=== PATIENT | female | born 1970 | race African-American/Black ===

== ENCOUNTER 2018-11-21 23:45 | Emergency (ER) | payer OTHER ==
[~2018-11-21] VITALS: Ht 165.1 cm; Wt 104.3 kg
--- OUTSIDE RECORDS SUMMARY | 2018-11-21 23:52 | XMS REPORT ---
Discharge Summary 2.1 Created on: TONY MELARA : 1970 Sex: Female Author Author ANIYAH MERINO Unknown Address [address] [facility] [address] [place], [place] [id number] Care Team Providers Care Family Dentist Name Role Phone HENNA PALMER Watchlist Xwatchlist CARMENCITA MONROEIN JAMMER OPERATOR Anesth ADRIEN GARCIA MD Attending KEIRA ALCANTAR ADRIEN Physasst DOLLY ALCANTAR ADRIEN Physasst ROHAN GARCIA MD [facility] Functional Status No Data Found Immunization Immunization Date Status Additional Notes Code Code System influenza, split (incl. purified surface antigen) 04/11/2011 Completed 15 CVX Mental Status No Data Found Results CBC W/ AUTO DIFF (RFLX MAN DIFF IF IND) - Collect Date/Time: 05/02/2018 06:40 [facility] PLANISHING HAMMER OPERATOR [facility] ID: [id number] [address] [facility] [address], [place], [id number] [employer] ID: [id number] [address] [facility] [address], [place], [place], [id number] LOINC: 44536-5 Test Value Unit Reference Range Code Code System WBC 6.3 TH/CMM L=4.5 H=10.8 74475-1 LOINC RBC 3.46 ML/CMM L=4.20 H=5.40 789-8 LOINC HGB 10.3 G/DL L=12.0 H=16.0 718-7 LOINC HCT 33.4 % L=37.0 H=47.0 4544-3 LOINC MCV 97 FL L=81 H=99 MCH 29.8 PG L=27.0 H=33.0 MCHC 30.8 G/DL L=31.0 H=36.0 RDW SD 49 FL L=36 H=50 RDW CV 13.9 % L=0.0 H=14.8 MPV 9.7 FL L=9.3 H=12.5 PLT 207 TH/CMM L=130 H=440 777-3 LOINC NRBC# 0.00 TH/CMM L=0.00 H=0.00 NRBC% 0.0 /100WBC L=0.0 H=2.0 %NEUT 48.3 % %LYMP 36.8 % %MONO 11.4 % %EOS 2.7 % %BASO 0.6 % #NEUT 3.06 TH/CMM L=2.10 H=8.20 #LYMP 2.33 TH/CMM L=0.90 H=5.20 #MONO 0.72 TH/CMM L=0.16 H=1.00 #EOS 0.17 TH/CMM L=0.00 H=0.80 #BASO 0.04 TH/CMM L=0.00 H=0.20 MANUAL DIFF NOT IND CBC W/ AUTO DIFF (RFLX MAN DIFF IF IND) - Collect Date/Time: 05/01/2018 06:15 [facility] PLANISHING HAMMER OPERATOR [facility] ID: [id number] [address] [facility] [address], [place], [place], [id number] [facility] ID: [id number] [address] [facility] [address], [place], [place], [id number] LOINC: 00486-9 Test Value Unit Reference Range Code Code System WBC 7.2 TH/CMM L=4.5 H=10.8 87889-9 LOINC RBC 3.43 ML/CMM L=4.20 H=5.40 789-8 LOINC HGB 10.2 G/DL L=12.0 H=16.0 718-7 LOINC HCT 32.7 % L=37.0 H=47.0 4544-3 LOINC MCV 95 FL L=81 H=99 MCH 29.7 PG L=27.0 H=33.0 MCHC 31.2 G/DL L=31.0 H=36.0 RDW SD 48 FL L=36 H=50 RDW CV 13.8 % L=0.0 H=14.8 MPV 10.8 FL L=9.3 H=12.5 PLT 224 TH/CMM L=130 H=440 777-3 LOINC NRBC# 0.00 TH/CMM L=0.00 H=0.00 NRBC% 0.0 /100WBC L=0.0 H=2.0 %NEUT 62.4 % %LYMP 27.2 % %MONO 9.5 % %EOS 0.3 % %BASO 0.3 % #NEUT 4.47 TH/CMM L=2.10 H=8.20 #LYMP 1.95 TH/CMM L=0.90 H=5.20 #MONO 0.68 TH/CMM L=0.16 H=1.00 #EOS 0.02 TH/CMM L=0.00 H=0.80 #BASO 0.02 TH/CMM L=0.00 H=0.20 MANUAL DIFF NOT IND KNEE 1V OR 2V - Completed: 04/30/2018 14:59 LOINC: EXAMINATION:KNEE 1V OR 2VREASON FOR EXAM:Post-Op Evaluation Left/Right?: LeftTECHNIQUE:AP and lateral views of the left knee were obtained. FINDINGS:There is a left total knee arthroplasty. No periprosthetic lucency or fracture is seen. Alignment is near anatomic. IMPRESSION: Left total knee arthroplasty.Reviewed and Electronically Signed by: Austin Redman MD DABRSigned Date/Time: 05/01/2018 7:53 AMJob ID#: [id number] Social History Type Status Start Date End Date Code Code System Smoking History Never smoker (Never Smoked) 046687983 SNOMED-CT Vital Signs Vital Sign Value Unit Coleman Value Coleman Unit Date/Time Recent/Initial? Code Code System Body Mass Index 37.77 kg/m2 04/08/2018 10:30 Initial 66724-9 LOINC Systolic Blood Pressure 115 mm[Hg] 05/02/2018 11:45 Most Recent 8480-6 LOINC Diastolic Blood Pressure 66 mm[Hg] 05/02/2018 11:45 Most Recent 8462-4 LOINC Systolic Blood Pressure 127 mm[Hg] 04/08/2018 10:30 Initial 8480-6 LOINC Diastolic Blood Pressure 81 mm[Hg] 04/08/2018 10:30 Initial 8462-4 LOINC Body Surface Area 2.17 m2 04/08/2018 10:30 Initial 3140-1 LOINC Height 165.1000 cm 65.00 in 04/08/2018 10:30 Initial 8302-2 LOINC O2 Saturation 100 % 05/02/2018 11:45 Most Recent 56146-3 LOINC O2 Saturation 100 % 04/08/2018 10:30 Initial 66628-8 LOINC Pulse 88.0 /min 05/02/2018 11:45 Most Recent 8867-4 LOINC Pulse 89.0 /min 04/08/2018 10:30 Initial 8867-4 LOINC Respiration 20 /min 05/02/2018 11:45 Most Recent 9279-1 LOINC Respiration 20 /min 04/08/2018 10:30 Initial 9279-1 LOINC Temperature 37.0 [place] 98.6 F 05/02/2018 11:45 Most Recent 8310-5 LOINC Temperature 36.3 [place] 97.3 F 04/30/2018 15:55 Initial 8310-5 LOINC Weight 102.9655 kg 227.00 lbs 04/08/2018 10:30 Initial 04519-9 LOINC Assessment You had the following problems: STATUS POST KNEE REPLACEMENT POST-OP PAIN COPD Review of Systems General: Recent health has been good. Lymph nodes: No recent history of enlargement, inflammation or pain. Head: No history of vertigo or convulsive disorder. Eyes: No history of cataracts or glaucoma. Ears: No history of tinnitus, pain or discharge. Nose: No history of chronic nasal discharge or drainage. Mouth and teeth: No history of recurrent soreness in mouth or tongue. Throat: No history of recurrent hoarseness. Neck: No history of goiter, swelling or enlarged nodes. Respiration: history of wheezing, dyspnea with her pulmonary HTN, gets SOB going upstairs, recent productive cough Cardiovascular: Significant for a history of hypertension. No recent problems with chest pain or abnormal shortness of breath. Gastrointestinal: No recent change in appetite or weight. No dysphagia or abdominal pain. Genitourinary: No history of dysuria or frequency. Endocrine: No history of goiter. Hemapoietic: No history of bleeding disorders. Musculoskeletal: Has a history of degenerative disease in her left knee. Physical Examination ---VITALS---B/P 127/81, rsp 20, hr 89, O2sat 100% ra, ht 5'5"wt 227, BMI 37.77 ---PHYSICAL EXAM--- GENERAL: This is a well-developed, well-nourished 47-year-old female in no acute distress. Patient has normal mood and affect. HEENT: Head is normocephalic. Eyes, pupils are equal and reactive. Nose, mouth and throat, airways are patent. Mucosa is without erythema or exudates. NECK: Symmetrical and supple. Trachea is midline. Thyroid is smooth, not enlarged, without nodules. LYMPHATIC: No anterior/posterior cervical, occipital or supraclavicular lymphadenopathy. CHEST AND LUNGS: Thorax is symmetrical. Breath sounds are bilaterally clear to auscultation. CARDIOVASCULAR: Regular rate and rhythm without murmur, gallops or rubs appreciated. No clicks appreciated. No S3 or S4 is noted. ABDOMEN: Patient has a slight rounded abdomen. Inspection reveals symmetric abdomen without pulsation. Auscultation reveals normal bowel sounds in all four quadrants. Palpation reveals no guarding or organomegaly. MUSCULOSKELETAL: Patient has crepitus with range of motion in her left knee and has decreased range of motion as well. Distal pulses and sensation were intact. There is no excessive scoliosis, lordosis or kyphosis noted. NEUROLOGIC: Patient's general behavior, level of consciousness, thought content and emotional status normal. Cranial nerves II- XII are grossly intact. Hospital Discharge Instructions Assessment Advanced secondary degernative disease left knee Plan of Treatment [facility] Anesthesia has ordered a echo prior to surgery Anticipate a 2-night hospital stay with dismissal to home. Treatment at the time of hospitalization to include medications for pain control, IV fluids, physical therapy, as well as treatment of her above mentioned currently medical problems. Assessment Day 1 status post left total knee arthroplasty Post-operative anemia secondary to surgical blood loss Obesity with a BMI greater than 30 Plan of Treatment Patient is doing well and progressing well. We will obtain better pain control prior to discharge. Discharge to home likely tomorrow (05/02/2018). Assessment POD #2 KR Plan of Treatment Continue current treatments Plan for dismissal today Should you have any questions prior to discharge, please contact a member of your healthcare team. If you have left the hospital and have any questions, plea se contact your primary care physician. PRIMARY CARE PROVIDER: Dr. Rhodes. [phone] HOME MEDICATION INSTRUCTIONS: Take only the medications listed above.. HOME MEDS RETURNED TO PATIENT: Yes. SCRIPTS WRITTEN BY DOCTOR GIVEN TO PATIENT? Yes, for what?,Celebrex, docusate,xarelto,percocet 5/325mg every 4 hours as needed for pain, aspirin, outpatient therapy. SMOKING CESSATION: Smoking and second hand smoke is harmful, to your health.. Smoking has been linked to cancer, cardiac disease, COPD, and asthma.. For more information you can call:, 7-329-SWF-STOP, or 9-160-[employer].. A pamphlet on smoking was given to you, at admission.. IMMUNIZATIONS GIVEN DURING HOSPITALIZATION: Patient refused flu and pneumonia immunizations. FOLLOW UP APPOINTMENT: Dr. Rhodes 05/15/18 at 10:30 FOLLOW-UP OUTPATIENT SERVICES: [facility] Saturday05/05/18 at 11:00 CONTACT PHYSICIAN IF YOU EXPERIENCE ANY: Fever greater than 101F, soreness or redness of calf, or uncontrolled pain. PERSONAL ITEMS RETURNED: Yes. INSTRUCTIONS GIVEN AND DISCHARGE TO: Patient, Spouse/SO, Discharged to:_home___ With:_SO__. INSTRUCTIONS GIVEN BY (TYPE IN NAME AND DATE) Henna Palmer RN. Reason For Referral No Data Found Hospital Course You were admitted to [facility] on 04/30/2018 10:08 with a principal diagnosis of Unilateral primary osteoarthritis, left knee You were discharged from [facility] on 05/02/2018 15:59 Medications Medication Start Date End Date Route Frequency Dose Code Code System Botox 100U Intramuscular Powder for Solution 05/01/2018 Unknown INTRAMUSCULAR EVERY 90 DAYS 100 UNITS 837425 RxNorm OUTPATIENT THERAPY 05/01/2018 Unknown 1 RxNorm Aspirin 81MG Oral Tablet, Enteric Coated 05/01/2018 Unknown BY MOUTH 1 TABLET 843255 RxNorm Percocet 5MG-325MG Oral Tablet 05/01/2018 Unknown BY MOUTH 1 TABLET 5340368 RxNorm Xarelto 10MG Oral Tablet 05/01/2018 Unknown BY MOUTH DAILY 10 MILLIGRAMS 0589216 RxNorm Docusate Sodium 100MG Oral Capsule, Liquid Filled 05/01/2018 Unknown BY MOUTH TWO TIMES A DAY 100 MILLIGRAMS 2494143 RxNorm lamoTRIgine 100MG Oral Tablet 05/01/2018 Unknown ORAL DAILY 100 MILLIGRAMS 552284 RxNorm Vitamin D 65373MV Oral Capsule 05/01/2018 Unknown ORAL WEEKLY ON SUNDAYS 30199 INTERNATIONAL UNITS 2471013 RxNorm Topamax 200MG Oral Tablet 05/01/2018 Unknown ORAL TWO TIMES A DAY 200 MILLIGRAMS 284358 RxNorm TRAZODONE 05/01/2018 Unknown ORAL AT BEDTIME 200 MILLIGRAMS RxNorm Symbicort 160/4.5 160MCG-4.5MCG/1 Actu Inhalation Aerosol Liquid 05/01/2018 Unknown INHALATION TWO TIMES A DAY 1 unit(s) 2793049 RxNorm Omeprazole 20MG Oral Capsule, Delayed Release 05/01/2018 Unknown ORAL TWO TIMES A DAY 20 MILLIGRAMS 334461 RxNorm Myrbetriq 50MG Oral Tablet, Extended Release 05/01/2018 Unknown ORAL DAILY 50 MILLIGRAMS 5854525 RxNorm Montelukast Sodium 10MG Oral Tablet 05/01/2018 Unknown ORAL NEEDED 10 MILLIGRAMS 912571 RxNorm Levothyroxine Sodium 137MCG Oral Tablet 05/01/2018 Unknown ORAL DAILY 137 MCG 933113 RxNorm Gabapentin 600MG Oral Tablet 05/01/2018 Unknown ORAL THREE TIMES A DAY 600 MILLIGRAMS 348287 RxNorm Fluconazole 200MG Oral Tablet 05/01/2018 Unknown ORAL WEEKLY ON SUNDAYS 200 MILLIGRAMS 094527 RxNorm DULoxetine HCl 20MG Oral Capsule, Delayed Release 05/01/2018 Unknown ORAL DAILY 20 MILLIGRAMS 282197 RxNorm CeleBREX 200MG Oral Capsule 05/02/2018 Unknown BY MOUTH DAILY 574417 RxNorm Procedures Procedure Name Date Status Code Code System Achilles tendon repair completed 649503240 SNOMED CT Arthroscopy of knee completed 512126036 SNOMED CT Tonsillectomy and adenoidectomy completed 053678642 SNOMED CT C section completed 05714065 SNOMED CT Replacement of Left Knee Joint with Synthetic Substitute, Cemented, Open A 04/30/2018 completed [id number] ICD10 PCS Hysterectomy completed 752232784 SNOMED CT Exploratory laparotomy completed 14387407 SNOMED CT Breast reduction completed 79535509 SNOMED CT Implants No Data Found Problems Problem Start Date Resolved Date Status Code Code System STATUS POST KNEE REPLACEMENT active 0698917417893 SNOMED-CT POST-OP PAIN active 946551793 SNOMED-CT COPD active 31975567 SNOMED-CT NEUROPATHY 04/09/2018 resolved 462472081 SNOMED-CT PULMONARY HYPERTENSION 04/09/2018 resolved 78043081 SNOMED-CT ARTHRITIS 04/09/2018 resolved 0894388 SNOMED-CT HYPOTHYROIDISM 04/09/2018 resolved 10022443 SNOMED-CT GERD 04/09/2018 resolved 845645763 SNOMED-CT Allergies Allergy Substance Reaction Severity Start Date Concern Status Code Code System PCN (penicillin) Rash (SNOMED-CT: 608530246) Mild Active RxNorm MORPHINE Itching (SNOMED-CT: 678066455) Mild Active 7052 RxNorm METHOTREXATE Mild to Moderate Active 6851 RxNorm LISINOPRIL Cough (SNOMED-CT: 59736878) Mild Active 69608 RxNorm SUMATRIPTAN Anaphylaxis (SNOMED-CT: 86700526) Severe Active 00162 RxNorm LATEX Swelling (SNOMED-CT: 91898785) Mild to Moderate Active 4421011 RxNorm Plan of Treatment No Data Found Encounters No Data Found Goals No Data Found Discharge Medications No Data Found Discharge Diagnosis Discharge Diagnosis Diagnosis Code Start Date Unilateral primary osteoarthritis, left knee M1712 04/30/2018 Health Concerns Section No Data Found
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
--- OUTSIDE RECORDS SUMMARY | 2018-11-21 23:52 | XMS REPORT ---
Discharge Summary 2.1 Created on: TONY MELARA : 1970 Sex: Female Author Author OMAR EDUARDO Unknown Address [address] [facility] [address] [place], [place] [id number] Care Team Providers Care Neon Light Installer Name Role Phone Xwatchlist JAMES SILVA BIOMEDICAL ENGINEERING PROFESSOR Anesth ADRIEN GARCIA MD Attending KEIRA JURADO Physasst DOLLY JURADO Physasst ROHAN GARCIA MD [facility] Functional Status No Data Found Immunization Immunization Date Status Additional Notes Code Code System influenza, split (incl. purified surface antigen) 04/11/2011 Completed 15 CVX Mental Status No Data Found Results CBC W/ AUTO DIFF (RFLX MAN DIFF IF IND) - Collect Date/Time: 09/12/2018 06:25 [employer] ID: [id number] [address] [facility] [address], [place], [id number] [facility] AERONAUTICAL TEST ENGINEER [employer] [facility] ID: [id number] [address] [facility] [address], [place], [id number] LOINC: 31177-1 Test Value Unit Reference Range Code Code System WBC 7.2 TH/CMM L=4.5 H=10.8 79467-3 LOINC RBC 3.31 ML/CMM L=4.20 H=5.40 789-8 LOINC HGB 9.4 G/DL L=12.0 H=16.0 718-7 LOINC HCT 30.5 % L=37.0 H=47.0 4544-3 LOINC MCV 92 FL L=81 H=99 MCH 28.4 PG L=27.0 H=33.0 MCHC 30.8 G/DL L=31.0 H=36.0 RDW SD 48 FL L=36 H=50 RDW CV 14.2 % L=0.0 H=14.8 MPV 10.2 FL L=9.3 H=12.5 PLT 191 TH/CMM L=130 H=440 777-3 LOINC NRBC# 0.00 TH/CMM L=0.00 H=0.00 NRBC% 0.0 /100WBC L=0.0 H=2.0 %NEUT 60.8 % %LYMP 28.2 % %MONO 8.0 % %EOS 2.1 % %BASO 0.6 % #NEUT 4.40 TH/CMM L=2.10 H=8.20 #LYMP 2.04 TH/CMM L=0.90 H=5.20 #MONO 0.58 TH/CMM L=0.16 H=1.00 #EOS 0.15 TH/CMM L=0.00 H=0.80 #BASO 0.04 TH/CMM L=0.00 H=0.20 MANUAL DIFF NOT IND CBC W/ AUTO DIFF (RFLX MAN DIFF IF IND) - Collect Date/Time: 09/11/2018 06:14 [employer] ID: [id number] [address] [facility] [address], [place], [place], [id number] [facility] AERONAUTICAL TEST ENGINEER [facility] ID: [id number] [address], [place], [place], [id number] LOINC: 08616-1 Test Value Unit Reference Range Code Code System WBC 10.8 TH/CMM L=4.5 H=10.8 12506-3 LOINC RBC 3.82 ML/CMM L=4.20 H=5.40 789-8 LOINC HGB 10.8 G/DL L=12.0 H=16.0 718-7 LOINC HCT 35.1 % L=37.0 H=47.0 4544-3 LOINC MCV 92 FL L=81 H=99 MCH 28.3 PG L=27.0 H=33.0 MCHC 30.8 G/DL L=31.0 H=36.0 RDW SD 47 FL L=36 H=50 RDW CV 14.1 % L=0.0 H=14.8 MPV 10.6 FL L=9.3 H=12.5 PLT 231 TH/CMM L=130 H=440 777-3 LOINC NRBC# 0.00 TH/CMM L=0.00 H=0.00 NRBC% 0.0 /100WBC L=0.0 H=2.0 %NEUT 68.7 % %LYMP 23.3 % %MONO 7.3 % %EOS 0.2 % %BASO 0.3 % #NEUT 7.38 TH/CMM L=2.10 H=8.20 #LYMP 2.51 TH/CMM L=0.90 H=5.20 #MONO 0.79 TH/CMM L=0.16 H=1.00 #EOS 0.02 TH/CMM L=0.00 H=0.80 #BASO 0.03 TH/CMM L=0.00 H=0.20 MANUAL DIFF NOT IND KNEE 1V OR 2V - Completed: 09/10/2018 13:02 LOINC: EXAMINATION:KNEE 1V OR 2VREASON FOR EXAM:Post-Op Evaluation Left/Right?: RIGHT COMPARISON:None.FINDINGS:Total knee arthroplasty changes with soft tissue swelling, subcutaneous emphysema, a joint effusion, and a surgical drain.IMPRESSION:Right total knee arthroplasty changes.Reviewed and Electronically Signed by: Jackson Lubin Date/Time: 09/10/2018 1:06 PMJob ID#: [id number] Social History Type Status Start Date End Date Code Code System Smoking History Never smoker (Never Smoked) 081373779 SNOMED-CT Vital Signs Vital Sign Value Unit [place] Value [place] Unit Date/Time Recent/Initial? Code Code System Body Mass Index 37.77 kg/m2 07/28/2018 11:05 Most Recent 06576-9 LOINC Body Mass Index 37.77 kg/m2 07/28/2018 11:05 Initial 48501-0 LOINC Systolic Blood Pressure 131 mm[Hg] 09/12/2018 11:12 Most Recent 8480-6 LOINC Diastolic Blood Pressure 83 mm[Hg] 09/12/2018 11:12 Most Recent 8462-4 LOINC Systolic Blood Pressure 132 mm[Hg] 07/28/2018 11:05 Initial 8480-6 LOINC Diastolic Blood Pressure 87 mm[Hg] 07/28/2018 11:05 Initial 8462-4 LOINC Body Surface Area 2.17 m2 07/28/2018 11:05 Most Recent 3140-1 LOINC Body Surface Area 2.17 m2 07/28/2018 11:05 Initial 3140-1 LOINC Height 165.1000 cm 65.00 in 07/28/2018 11:05 Most Recent 8302-2 LOINC Height 165.1000 cm 65.00 in 07/28/2018 11:05 Initial 8302-2 LOINC O2 Saturation 98 % 09/12/2018 11:12 Most Recent 52066-0 LOINC O2 Saturation 100 % 07/28/2018 11:05 Initial 22887-3 LOINC Pulse 80.0 /min 09/12/2018 11:12 Most Recent 8867-4 LOINC Pulse 76.0 /min 07/28/2018 11:05 Initial 8867-4 LOINC Respiration 18 /min 09/12/2018 11:12 Most Recent 9279-1 LOINC Respiration 20 /min 07/28/2018 11:05 Initial 9279-1 LOINC Temperature 36.7 [place] 98.1 F 09/12/2018 11:12 Most Recent 8310-5 LOINC Temperature 36.7 [place] 98.1 F 09/10/2018 12:55 Initial 8310-5 LOINC Weight 103.00 kg 227.00 lbs 07/28/2018 11:05 Most Recent 38741-1 LOINC Weight 103.00 kg 227.00 lbs 07/28/2018 11:05 Initial 93319-9 LOINC Assessment You had the following problems: STATUS POST KNEE REPLACEMENT POST-OP PAIN Review of Systems General: Patient denies recent fever, sweats, or weight changes Dermatological: Patient denies new rashes, lesions, or bruising HEENT: Patient denies recent ROMERO, loss of vision, hearing changes, nasal drainage, or sore throat Cardiovascular: Patient denies recent chest pain, palpitations, or lower extremity swelling Respiratory: Patient denies recent SOB, cough, or wheezing Abdominal/GI: Patient denies recent abd pain, nausea, vomiting, diarrhea, or constipation Musculoskeletal: Patient denies any muscles weakness or pain except as noted in HPI Neurological: Patient denies recent strokes, seizures, loss of sensation, or LOC Endocrine: Patient denies recent problems with diabetes Hematologic: Patient denies a history of blood clots Physical Examination ---VITALS--- BP 132/87, HR 76, RR 20, O2 sat 100%, height 5 foot 5 inches, weight 227 pounds, BMI 37.8 ---PHYSICAL EXAM--- General: Alert&oriented x3, NAD, well-developed, well- nourished Dermatological: Skin is warm and dry without rash or lesions noted Head: Normocephalic, atraumatic Eyes: EOM intact, PERRLA, conjunctiva clear without discharge Ears: Auricles intact without lesions, hearing intact Nose: Nares clear and patent, no discharge noted Throat: Oropharyngeal and buccal mucosa pink and moist, no lesions noted Neck: Supple without lymphadenopathy, trachea in the midline Chest: Symmetrical expansion, NTTP Cardiovascular: RRR, S1&S2, without murmurs or gallops noted, Radial and posterior tibialis pulses 2+ bilaterally, No edema noted on exam Respiratory: CTAB without wheezing or rales Abdominal/GI: Soft, nontender, nondistended, with bowel sounds in 4 quadrants, No masses or organomegaly noted Musculoskeletal: right knee range of motion 0-120?, mild antalgic gait in right lower extremity, no effusion, no instability, medial joint line tenderness, crepitance with range of motion Neurological: Good sensation noted in UE and LE. Psychiatric: Mood and affect are congruent Hospital Discharge Instructions Assessment POD #1 RTKR, acute anemia secondary to expected surgical and post surgical blood loss Plan of Treatment Continue current treatments Plan for dismissal tomorrow if medically stable and met PT's goals Assessment Day 2 status post right total knee arthroplasty Postoperative anemia secondary to surgical blood loss Obesity with a BMI greater than 30 Plan of Treatment The patient is doing well and progressing well. The patient will be discharged home today (09/12/2018). Remainder of instructions per discharge orders Assessment Right knee advanced primary osteoarthritis Obesity with a BMI greater than 30 Plan of Treatment The patient is scheduled for a right total knee arthroplasty on 09/10/2018 pending surgical release from hematology. The indications, complications, risks, and benefits of the procedure were discussed with the patient including an anticipated hospital stay of 2-3 days. During that time the patient will receive therapy, pain control, IV antibiotics, and post- op care. The patient will then be discharged, likely to home, and continue therapy on an outpatient basis. Anesthesia will meet with the patient preoperatively to discuss their medications and other preoperative instructions for the day of surgery. Should you have any questions prior to discharge, please contact a member of your healthcare team. If you have left the hospital and have any questions, plea se contact your primary care physician. INSTRUCTIONS GIVEN BY (TYPE IN NAME AND DATE) LONG GARCIA 09/12/18 Reason For Referral No Data Found Hospital Course You were admitted to [facility] on 09/10/2018 06:53 with a principal diagnosis of Unilateral primary osteoarthritis, right knee You were discharged from [facility] on 09/12/2018 17:05 Medications Medication Start Date End Date Route Frequency Dose Code Code System Percocet 5MG-325MG Oral Tablet 09/11/2018 Unknown BY MOUTH NEEDED EVERY 6 HR 1 TABLET 8546226 RxNorm Outpatient therapy 09/11/2018 Unknown TKR prototcol RxNorm Aspirin 81MG Oral Tablet, Enteric Coated 09/11/2018 Unknown BY MOUTH DAILY 1 TABLET 533877 RxNorm Thera-M Enhanced 90MG-0.03MG-0.15MG-4 Oral Tablet 09/11/2018 Unknown BY MOUTH DAILY 1 TABLET 655986 RxNorm Xarelto 10MG Oral Tablet 09/11/2018 Unknown BY MOUTH DAILY 1 TABLET 5897224 RxNorm Docusate Sodium 100MG Oral Capsule, Liquid Filled 09/11/2018 Unknown BY MOUTH TWO TIMES A DAY 1 TABLET 2065372 RxNorm lamoTRIgine 100MG Oral Tablet 09/11/2018 Unknown ORAL DAILY 100 MILLIGRAMS 166100 RxNorm Topamax 200MG Oral Tablet 09/11/2018 Unknown ORAL TWO TIMES A DAY 200 MILLIGRAMS 175950 RxNorm TRAZODONE 09/11/2018 Unknown ORAL AT BEDTIME 200 MILLIGRAMS RxNorm Myrbetriq 50MG Oral Tablet, Extended Release 09/11/2018 Unknown ORAL DAILY 50 MILLIGRAMS 9866173 RxNorm Linzess 72MCG Oral Capsule 09/11/2018 Unknown ORAL DAILY 72 MCG 2935568 RxNorm Levothyroxine Sodium 137MCG Oral Tablet 09/11/2018 Unknown ORAL DAILY 137 MCG 126194 RxNorm Gabapentin 600MG Oral Tablet 09/11/2018 Unknown ORAL THREE TIMES A DAY 600 MILLIGRAMS 685539 RxNorm CYMBALTA 09/11/2018 Unknown ORAL DAILY 40 MILLIGRAMS RxNorm Procedures Procedure Name Date Status Code Code System Replacement of Right Knee Joint with Synthetic Substitute, Cemented, Open 09/10/2018 completed [id number] ICD10 PCS Implants Implanted LIANA Status Assigning Authority Procedure Date Polyethylene patella prosthesis 7775842561632533615402660270118706 Active FDA RT TKR 09/10/2018 Tibial insert 4408009210761731375525283293379561 Active FDA RT TKR 09/10/2018 Uncoated knee tibia prosthesis, metallic 9203692538261643317588812511776185 Active FDA RT TKR 09/10/2018 Uncoated knee femur prosthesis 6488386254141380572979620727136613 Active FDA RT TKR 09/10/2018 Orthopaedic cement, non-medicated 352523023631664358603360501217760318788290 Active FDA RT TKR 09/10/2018 Problems Problem Start Date Resolved Date Status Code Code System STATUS POST KNEE REPLACEMENT active 4547996995857 SNOMED-CT POST-OP PAIN active 352432944 SNOMED-CT GERD 04/09/2018 resolved 357248067 SNOMED-CT NEUROPATHY 04/09/2018 resolved 054575680 SNOMED-CT ARTHRITIS 04/09/2018 resolved 7392243 SNOMED-CT PULMONARY HYPERTENSION 04/09/2018 resolved 49138066 SNOMED-CT POST-OP PAIN 05/13/2018 resolved 488546617 SNOMED-CT COPD 05/19/2018 resolved 16243237 SNOMED-CT STATUS POST KNEE REPLACEMENT 05/19/2018 resolved 5843280026417 SNOMED- CT HYPOTHYROIDISM 04/09/2018 resolved 90445153 SNOMED-CT Allergies Allergy Substance Reaction Severity Start Date Concern Status Code Code System PCN (penicillin) Rash (SNOMED-CT: 169432954) Mild Active X8812735717 NDF-RT MORPHINE Itching (SNOMED-CT: 292764380) Mild Active 7052 RxNorm METHOTREXATE Mild to Moderate Active 6851 RxNorm LISINOPRIL Cough (SNOMED-CT: 10077154) Mild Active 05862 RxNorm SUMATRIPTAN Anaphylaxis (SNOMED-CT: 92713005) Severe Active 25890 RxNorm LATEX Swelling (SNOMED-CT: 13730346) Mild to Moderate Active 2147417 RxNorm IMITREX Active 456218 RxNorm LOSARTAN POTASSIUM AVPAK Active 655927 RxNorm Plan of Treatment No Data Found Encounters No Data Found Goals No Data Found Discharge Medications No Data Found Discharge Diagnosis Discharge Diagnosis Diagnosis Code Start Date Unilateral primary osteoarthritis, right knee M1711 09/10/2018 Health Concerns Section No Data Found
--- OUTSIDE RECORDS SUMMARY | 2018-11-21 23:52 | XMS REPORT ---
Discharge Summary 2.1 Created on: TONY MELARA : 1970 Sex: Female Author Author OMAR EDUARDO Unknown Address [address] [facility] [address] [place], [place] [id number] Care Team Providers Care Cloth Bleaching Range Back Tender Name Role Phone Xwatchlist JAMES SILVA WIRE MILL OPERATOR Anesth ADRIEN GARCIA MD Attending KEIRA JURADO Physasst DOLLY JURADO Physasst ROHAN GARCIA MD [facility] Functional Status No Data Found Immunization Immunization Date Status Additional Notes Code Code System influenza, split (incl. purified surface antigen) 04/11/2011 Completed 15 CVX Mental Status No Data Found Results CBC W/ AUTO DIFF (RFLX MAN DIFF IF IND) - Collect Date/Time: 09/12/2018 06:25 [employer] ID: [id number] [address] [facility] [address], [place], [address] [facility] [employer] [facility] ID: [id number] [address] [facility] [address], [place], [address] LOINC: 06995-5 Test Value Unit Reference Range Code Code System WBC 7.2 TH/CMM L=4.5 H=10.8 72657-9 LOINC RBC 3.31 ML/CMM L=4.20 H=5.40 789-8 [...] IF IND) - Collect Date/Time: 09/11/2018 06:14 [facility] ID: [id number] [address], [place], [place], [address] [facility] [employer] [facility] ID: [id number] [address], [place], [place], [address] LOINC: 84876-1 Test Value Unit Reference Range Code Code System WBC 10.8 TH/CMM L=4.5 H=10.8 40400-8 LOINC RBC 3.82 ML/CMM L=4.20 H=5.40 789-8 [...] Jackson Lubin Date/Time: 09/10/2018 1:06 PMJob ID#: [id number] Social History Type Status Start Date End Date Code Code System Smoking History Never smoker (Never Smoked) 281345367 SNOMED-CT Vital Signs Vital Sign Value Unit [place] Value [place] Unit Date/Time Recent/Initial? Code Code System Body Mass Index 37.77 kg/m2 07/28/2018 11:05 Most Recent 98176-3 LOINC Body Mass Index 37.77 kg/m2 07/28/2018 11:05 Initial 24966-7 LOINC Systolic Blood Pressure 131 mm[Hg] 09/12/2018 [...] Saturation 98 % 09/12/2018 11:12 Most Recent 12010-6 LOINC O2 Saturation 100 % 07/28/2018 11:05 Initial 93158-3 LOINC Pulse 80.0 /min 09/12/2018 11:12 Most [...] kg 227.00 lbs 07/28/2018 11:05 Most Recent 98707-7 LOINC Weight 103.00 kg 227.00 lbs 07/28/2018 11:05 Initial 68343-0 LOINC Assessment You had the following problems: [...] Found Hospital Course You were admitted to [facility] on 09/10/2018 06:53 with a principal diagnosis of Unilateral primary osteoarthritis, right knee You were discharged from [facility] on 09/12/2018 17:05 Medications Medication Start Date End Date Route Frequency Dose Code Code System Percocet 5MG-325MG Oral Tablet 09/11/2018 Unknown BY MOUTH NEEDED EVERY 6 HR 1 TABLET 3941757 RxNorm Outpatient therapy 09/11/2018 Unknown TKR prototcol RxNorm Aspirin 81MG Oral Tablet, Enteric Coated 09/11/2018 Unknown BY MOUTH DAILY 1 TABLET 819067 RxNorm Thera-M Enhanced 90MG-0.03MG-0.15MG-4 Oral Tablet 09/11/2018 Unknown BY MOUTH DAILY 1 TABLET 045013 RxNorm Xarelto 10MG Oral Tablet 09/11/2018 Unknown BY MOUTH DAILY 1 TABLET 2354882 RxNorm Docusate Sodium 100MG Oral Capsule, Liquid Filled 09/11/2018 Unknown BY MOUTH TWO TIMES A DAY 1 TABLET 7802003 RxNorm lamoTRIgine 100MG Oral Tablet 09/11/2018 Unknown ORAL DAILY 100 MILLIGRAMS 499206 RxNorm Topamax 200MG Oral Tablet 09/11/2018 Unknown ORAL TWO TIMES A DAY 200 MILLIGRAMS 000504 RxNorm TRAZODONE 09/11/2018 Unknown ORAL AT BEDTIME 200 MILLIGRAMS RxNorm Myrbetriq 50MG Oral Tablet, Extended Release 09/11/2018 Unknown ORAL DAILY 50 MILLIGRAMS 7216291 RxNorm Linzess 72MCG Oral Capsule 09/11/2018 Unknown ORAL DAILY 72 MCG 0974702 RxNorm Levothyroxine Sodium 137MCG Oral Tablet 09/11/2018 Unknown ORAL DAILY 137 MCG 200700 RxNorm Gabapentin 600MG Oral Tablet 09/11/2018 Unknown ORAL THREE TIMES A DAY 600 MILLIGRAMS 528951 RxNorm CYMBALTA 09/11/2018 Unknown ORAL DAILY 40 MILLIGRAMS RxNorm Procedures Procedure Name Date Status Code Code System Replacement of Right Knee Joint with Synthetic Substitute, Cemented, Open 09/10/2018 completed [id number] ICD10 PCS Implants Implanted LIANA Status Assigning Authority Procedure Date Polyethylene patella prosthesis 7819729916756366905026435136445707 Active FDA RT TKR 09/10/2018 Tibial insert 7682097824250021088417477966874379 Active FDA RT TKR 09/10/2018 Uncoated knee tibia prosthesis, metallic 8073784816280559757574991829058301 Active FDA RT TKR 09/10/2018 Uncoated knee femur prosthesis 3652229828503618524946519190144938 Active FDA RT TKR 09/10/2018 Orthopaedic cement, non-medicated 317406074100641991972253050852060096633637 Active FDA RT TKR 09/10/2018 Problems Problem Start Date Resolved Date Status Code Code System STATUS POST KNEE REPLACEMENT active 2982400390801 SNOMED-CT POST-OP PAIN active 243910175 SNOMED-CT GERD 04/09/2018 resolved 728819347 SNOMED-CT NEUROPATHY 04/09/2018 resolved 401237211 SNOMED-CT ARTHRITIS 04/09/2018 resolved 2723038 SNOMED-CT PULMONARY HYPERTENSION 04/09/2018 resolved 96158895 SNOMED-CT POST-OP PAIN 05/13/2018 resolved 783615398 SNOMED-CT COPD 05/19/2018 resolved 29379628 SNOMED-CT STATUS POST KNEE REPLACEMENT 05/19/2018 resolved 1440148341798 SNOMED- CT HYPOTHYROIDISM 04/09/2018 resolved 08370022 SNOMED-CT Allergies Allergy Substance Reaction Severity Start Date Concern Status Code Code System PCN (penicillin) Rash (SNOMED-CT: 965976766) Mild Active W0627190022 NDF-RT MORPHINE Itching (SNOMED-CT: 369530385) Mild Active 7052 RxNorm METHOTREXATE Mild to Moderate Active 6851 RxNorm LISINOPRIL Cough (SNOMED-CT: 48480183) Mild Active 54449 RxNorm SUMATRIPTAN Anaphylaxis (SNOMED-CT: 10875677) Severe Active 16068 RxNorm LATEX Swelling (SNOMED-CT: 80946958) Mild to Moderate Active 6678890 RxNorm IMITREX Active 393969 RxNorm LOSARTAN POTASSIUM AVPAK Active 367432 RxNorm Plan of Treatment No Data Found Encounters No Data Found Goals No Data Found Discharge Medications No Data Found Discharge Diagnosis Discharge Diagnosis Diagnosis Code Start Date Unilateral primary osteoarthritis, right knee M1711 09/10/2018 Health Concerns Section No Data Found
--- OUTSIDE RECORDS SUMMARY | 2018-11-21 23:53 | XMS REPORT ---
Author Author Austin Huitron Organization [facility] Address [address] [place], [place] [id number] Care Team Providers Care Senior Logistics Manager Name Role Phone Austin Huitron PCP Austin Austin PreferredProvider Allergies and Adverse Reactions Name Reaction Notes PENICILLINS morphine Methotrexate Latex losartan Imitrex Plan of Treatment Planned Activity Comments Planned Date Planned Time Plan/Goal Referral to Dr. Huitron 11/04/2018 8:30 AM EKG. 05/08/2018 12:00 AM Holter monitoring 10/01/2018 12:00 AM EKG. 11/07/2018 12:00 AM PT 11/07/2018 12:00 AM PTT. 11/07/2018 12:00 AM Chest PA and Lateral - Main 11/07/2018 12:00 AM UA ROUTINE ONLY 11/07/2018 12:00 AM BMP 11/07/2018 12:00 AM CBC W/ AUTO DIFF (RFLX MAN DIFF IF IND). 11/07/2018 12:00 AM Medications Active Name Start Date Estimated Completion Date SIG Comments levothyroxine 137 mcg oral tablet take 1 tablet (137 mcg) by oral route once daily phenazopyridine 200 mg oral tablet take 1 tablet (200 mg) by oral route 3 times per day after meals topiramate 100 mg oral tablet take 1 tablet (100 mg) by oral route 2 times per day Myrbetriq 50 mg oral tablet extended release 24 hr 06/25/2018 06/20/2019 take 1 tablet (50 mg) by oral route once daily swallowing whole with water. Do not crush, chew and/or divide. for 30 days duloxetine 60 mg oral capsule,delayed release(DR/EC) take 1 capsule (60 mg) by oral route once daily gabapentin 300 mg oral capsule take 1 capsule (300 mg) by oral route 3 times per day trazodone 300 mg oral tablet take 1 tablet by oral route daily lamotrigine 150 mg oral tablet take 1 tablet (150 mg) by oral route once daily Flonase Allergy Relief 50 mcg/actuation nasal spray,suspension 09/12/2018 12/11/2018 spray 1 - 2 sprays (50 - 100 mcg) in each nostril by intranasal route once daily as needed for 90 days Scrub Chlorhexidine Gluconate 4 % topical liquid 09/12/2018 apply externally as directed Linzess 145 mcg oral capsule take 1 capsule (145 mcg) by oral route once daily on an empty stomach at least 30 minutes before 1st meal of the day Name Start Date Expiration Date SIG Comments ferrous sulfate 325 mg (65 mg iron) oral tablet 05/09/2018 08/07/2018 take 1 tablet (325 mg) by oral route once daily for 30 days Per pt Zofran 4 mg oral tablet 07/15/2018 07/20/2018 take 1 tablet by oral route every 8 hours as needed for 5 days doxycycline hyclate 100 mg oral capsule 08/29/2018 09/05/2018 take 1 capsule (100 mg) by oral route every 12 hours for 7 days Per pt prednisone 20 mg oral tablet 09/02/2018 09/07/2018 take 2 tablets (40 mg) by oral route once daily for 5 days Discontinued Name Start Date Discontinued Date SIG Comments gabapentin 600 mg oral tablet 09/12/2018 take 1 tablet (600 mg) by oral route 3 times per day trazodone 100 mg oral tablet 09/12/2018 take 1 tablet (100 mg) by oral route 2 times per day duloxetine 30 mg oral capsule,delayed release(DR/EC) 08/29/2018 take 1 capsule (30 mg) by oral route once daily lamotrigine 25 mg oral tablet 09/12/2018 take 2 tablets by oral route daily Metamucil 3.4 gram/5.4 gram oral powder 05/26/2018 09/11/2018 use as directed by oral route daily Pt notified. Linzess 72 mcg oral capsule 09/11/2018 take 1 capsule (72 mcg) by oral route once daily on an empty stomach at least 30 minutes before 1st meal of the day hydrochlorothiazide 12.5 mg oral tablet 08/15/2018 09/11/2018 take 1 tablet (12.5 mg) by oral route once daily for 30 days Per pt duloxetine 40 mg oral capsule,delayed release(DR/EC) 09/12/2018 take 1 capsule (40 mg) by oral route once daily Flonase Allergy Relief 50 mcg/actuation nasal spray,suspension 08/29/2018 09/11/2018 spray 1 - 2 sprays (50 - 100 mcg) in each nostril by intranasal route once daily for 90 days Pt notified. Problem List Not available. Vital Signs Date Time BP-Sys(mm[Hg] BP-Fang(mm[Hg]) HR(bpm) RR(rpm) Temp WT HT HC BMI BSA BMI Percentile O2 Sat(%) 11/04/2018 8:31:00 AM 126 mmHg 72 mmHg 75 bpm 98.7 F 243.25 lbs 63 in 43.0894 kg/m 2.2146 m 97 % 10/01/2018 2:09:00 PM 138 mmHg 72 mmHg 102 bpm 17 rpm 98.1 F 241 lbs 63 in 42.69 kg/m2 2.20 m2 99 % 09/08/2018 2:00:00 PM 134 mmHg 78 mmHg 81 bpm 17 rpm 98.2 F 239 lbs 63 in 42.3365 kg/m 2.1952 m 99 % 09/02/2018 11:00:00 AM 132 mmHg 78 mmHg 78 bpm 18 rpm 98.4 F 240.125 lbs 63 in 42.54 kg/m2 2.20 m2 98 % 08/29/2018 9:17:00 AM 122 mmHg 68 mmHg 67 bpm 18 rpm 98.8 F 244.5 lbs 63 in 43.3108 kg/m 2.2203 m 99 % 08/19/2018 10:27:00 AM 108 mmHg 72 mmHg 08/14/2018 9:23:00 AM 134 mmHg 78 mmHg 90 bpm 18 rpm 98.6 F 242.125 lbs 63 in 42.8901 kg/m 2.2095 m 98 % 08/08/2018 11:03:00 AM 124 mmHg 78 mmHg 82 bpm 18 rpm 98.2 F 235.125 lbs 65 in 39.13 kg/m2 2.21 m2 98 % 07/23/2018 9:58:00 AM 132 mmHg 76 mmHg 82 bpm 18 rpm 99.1 F 232.5 lbs 65 in 38.6896 kg/m 2.1992 m 97 % 07/15/2018 9:31:00 AM 90 mmHg 72 mmHg 89 bpm 07/15/2018 9:30:00 AM 92 mmHg 68 mmHg 82 bpm 07/15/2018 9:28:00 AM 108 mmHg 80 mmHg 74 bpm 07/15/2018 8:29:00 AM 118 mmHg 72 mmHg 84 bpm 18 rpm 98.6 F 236.375 lbs 65 in 39.3345 kg/m 2.2175 m 98 % 05/19/2018 2:43:00 PM 116 mmHg 69 mmHg 76 bpm 98.1 F 233 lbs 65 in 38.77 kg/m2 2.20 m2 05/09/2018 1:55:00 PM 128 mmHg 78 mmHg 99 bpm 18 rpm 98.8 F 236.5 lbs 65 in 39.3553 kg/m 2.2181 m 97 % 04/29/2018 1:27:00 PM 132 mmHg 76 mmHg 85 bpm 18 rpm 98.8 F 236.375 lbs 65 in 39.33 kg/m2 2.22 m2 99 % 04/25/2018 11:31:00 AM 130 mmHg 100 mmHg 82 bpm 14 rpm 98.8 F 236.5 lbs 65 in 39.3553 kg/m 2.2181 m 96 % 03/18/2018 1:19:00 PM 104 mmHg 6 mmHg 89 bpm 18 rpm 98.2 F 231.125 lbs 65 in 38.46 kg/m2 2.19 m2 98 % 03/06/2018 3:27:00 PM 124 mmHg 74 mmHg 80 bpm 14 rpm 98.6 F 234.25 lbs 65 in 38.9808 kg/m 2.2075 m 99 % Social History Name Description Comments Alcohol Light Caffeine Current every day Tobacco Never smoker History of Procedures Date Ordered Description Order Status 03/06/2018 12:00 AM URINALYSIS AUTO W/SCOPE Reviewed 03/06/2018 12:00 AM US EXAM PELVIC LIMITED Reviewed 03/17/2018 12:00 AM COMPLETE CBC W/AUTO DIFF WBC Reviewed 03/17/2018 12:00 AM METABOLIC PANEL TOTAL CA Reviewed 03/17/2018 12:[address] ABD & PELV 1/> REGNS Reviewed 03/17/2018 12:00 AM URINALYSIS AUTO W/SCOPE Reviewed 03/18/2018 12:00 AM ASSAY THYROID STIM HORMONE Returned 03/18/2018 12:00 AM RHEUMATOID FACTOR QUANT Returned 03/18/2018 12:00 AM ANTINUCLEAR ANTIBODIES JOSELO Returned 03/18/2018 12:00 AM TOTAL CORTISOL Returned 03/18/2018 12:00 AM RBC SED RATE AUTOMATED Returned 03/18/2018 12:00 AM ASSAY OF PROLACTIN Returned 03/18/2018 12:00 AM ELECTROCARDIOGRAM TRACING Returned 03/25/2018 12:00 AM CYSTOSCOPY Reviewed 03/31/2018 12:00 AM FREE ASSAY (FT-3) Returned 03/31/2018 12:00 AM ASSAY OF TOTAL THYROXINE Returned 03/31/2018 12:00 AM MYOCARDIAL SPECT MULTIPLE STUDIES Returned 04/29/2018 12:00 AM SMEAR WET MOUNT SALINE/INK Returned 05/08/2018 12:00 AM COMPLETE CBC W/AUTO DIFF WBC Returned 05/08/2018 12:00 AM COMPREHEN METABOLIC PANEL Returned 05/08/2018 12:00 AM CHEST X-RAY 2VW FRONTAL&LATL Returned 04/25/2018 12:00 AM URINALYSIS AUTO W/SCOPE Reviewed 05/19/2018 12:00 AM CULTURE SCREEN ONLY Reviewed 05/19/2018 12:00 AM CHYLMD TRACH DNA AMP PROBE Reviewed 05/19/2018 12:00 AM DETECT AGENT NOS DNA AMP Reviewed 05/19/2018 12:00 AM TRICHOMONAS VAGINALIS AMPLIF Reviewed 05/19/2018 12:00 AM DETECT AGENT NOS DNA QUANT Reviewed 05/26/2018 12:00 AM MRI LUMBAR SPINE W/O DYE Returned 07/03/2018 12:00 AM URNLS DIP STICK/TABLET RGNT AUTO W/O MICROSCOPY Returned 07/15/2018 12:00 AM TOTAL CORTISOL Returned 07/15/2018 12:00 AM ASSAY OF ACTH Returned 07/15/2018 12:00 AM ASSAY OF LIPASE Returned 07/15/2018 12:00 AM CREATINE MB FRACTION Returned 07/15/2018 12:00 AM ASSAY OF TROPONIN QUANT Returned 07/15/2018 12:00 AM TTE W/DOPPLER COMPLETE Returned 07/23/2018 12:00 AM COMPREHEN METABOLIC PANEL Returned 07/23/2018 12:00 AM COMPLETE CBC W/AUTO DIFF WBC Returned 07/23/2018 12:00 AM FIBRIN DEGRADATION QUANT Returned 07/23/2018 12:00 AM GLYCOSYLATED HEMOGLOBIN TEST Returned 07/23/2018 12:00 AM VITAMIN B-12 Returned 07/23/2018 12:[address] THORAX W/O DYE Returned 08/11/2018 12:00 AM MRI NECK SPINE W/O DYE Returned 08/14/2018 12:00 AM COMPREHEN METABOLIC PANEL Returned 08/14/2018 12:00 AM URINALYSIS AUTO W/SCOPE Returned 08/29/2018 12:00 AM Solu-Medrol, Up to 125 Mg [facility]# [address]-01 Reviewed Results Summary Date and Description Results 03/06/2018 4:27 PM COLOR YELLOW APPEARANCE CLEAR SPEC GRAV >=1.030 pH 5.5 PROTEIN TRACE GLUCOSE NEGATIVE KETONE TRACE BILIRUBIN NEGATIVE BLOOD NEGATIVE NITRITE NEGATIVE LEUK SCREEN NEGATIVE WBC/HPF 0-5 RBC/HPF NEGATIVE CASTS/LPF FEW WBC CASTS CRYSTALS NEGATIVE MUCOUS THRDS 2++ BACTERIA FEW EPITH CELLS FEW SQUAMOUS TRICHOMONAS NEGATIVE YEAST NEGATIVE CULT SET UP? NO 03/17/2018 12:45 PM GLUCOSE 103 SODIUM 140 POTASSIUM 3.5 CHLORIDE 108 CO2 24 BUN 14 CREATININE 0.8 CALCIUM 9.8 AGE 47 GFR NonAA 77 GFR AA 93 eGFR 77 eGFR AA* >60 WBC 4.6 RBC 4.41 HGB 12.9 HCT 40.2 MCV 91 MCH 29.3 MCHC 32.1 RDW SD 45 RDW CV 13.2 MPV 10.0 PLT 241 NRBC# 0.00 NRBC% 0.0 %NEUT 47.4 %LYMP 43.6 %MONO 6.6 %EOS 1.3 %BASO 0.7 #NEUT 2.16 #LYMP 1.99 #MONO 0.30 #EOS 0.06 #BASO 0.03 MANUAL DIFF NOT IND 03/17/2018 1:10 PM COLOR YELLOW APPEARANCE CLEAR SPEC GRAV >=1.030 pH 6.0 PROTEIN NEGATIVE GLUCOSE NEGATIVE KETONE NEGATIVE BILIRUBIN NEGATIVE BLOOD NEGATIVE NITRITE NEGATIVE LEUK SCREEN NEGATIVE WBC/HPF RARE RBC/HPF NEGATIVE CASTS/LPF NEGATIVE CRYSTALS NEGATIVE MUCOUS THRDS NEGATIVE BACTERIA NEGATIVE EPITH CELLS FEW SQUAMOUS TRICHOMONAS NEGATIVE YEAST NEGATIVE CULT SET UP? NO 04/25/2018 12:37 PM COLOR YELLOW APPEARANCE CLEAR SPEC GRAV 1.015 pH 6.5 PROTEIN NEGATIVE GLUCOSE NEGATIVE KETONE NEGATIVE BILIRUBIN NEGATIVE BLOOD NEGATIVE NITRITE NEGATIVE LEUK SCREEN NEGATIVE WBC/HPF RARE RBC/HPF NEGATIVE CASTS/LPF NEGATIVE CRYSTALS NEGATIVE MUCOUS THRDS NEGATIVE BACTERIA NEGATIVE EPITH CELLS FEW SQUAMOUS TRICHOMONAS NEGATIVE YEAST NEGATIVE CULT SET UP? NO History Of Immunizations Not available. History of Past Illness Name Date of Onset Comments Thyroid disorder IBS (irritable bowel syndrome) PTSD (post-traumatic stress disorder) Sinusitis pulmonary hypertension Radicular pain of left lower extremity Rheumatiod Arthritis sleep apnea Urge Incontinence Mar 06 2018 3:31PM Interstitial cystitis Mar 06 2018 3:31PM S/P bladder repair Mar 06 2018 3:31PM S/P hysterectomy Mar 06 2018 3:31PM Endometriosis Mar 06 2018 3:31PM Pyelonephritis Mar 17 2018 9:43AM Hypothyroidism, Acquired Mar 18 2018 1:24PM Chronic fatigue Mar 18 2018 1:24PM Rheumatoid arthritis involving multiple sites, unspecified rheumatoid factor presence Mar 18 2018 1:24PM Galactorrhea Mar 18 2018 1:24PM Precordial pain Mar 18 2018 1:24PM Establishing care with new doctor, encounter for Mar 18 2018 1:24PM Urge incontinence Mar 25 2018 8:49AM Low TSH level Mar 31 2018 2:56PM Precordial pain Mar 31 2018 2:56PM Urge Incontinence Apr 25 2018 11:33AM Vaginal discharge Apr 29 2018 1:32PM Syncopal episodes May 08 2018 11:21AM Lumbar radiculopathy May 09 2018 2:00PM Chronic constipation Apr 25 2018 11:33AM Vaginal discharge May 19 2018 2:52PM Rectovaginal fistula May 19 2018 2:52PM Vaginal bleeding May 19 2018 2:52PM Lumbar radiculopathy May 26 2018 5:41PM Weakness of both lower extremities May 26 2018 5:41PM Vasovagal syncope May 09 2018 2:00PM Dysuria Jul 03 2018 12:44PM Foul smelling urine Jul 03 2018 12:44PM Cloudy urine Jul 03 2018 12:44PM Epigastric pain Jul 15 2018 8:40AM Pre-syncope Jul 15 2018 8:40AM Chest pressure Jul 15 2018 8:40AM Adrenal insufficiency Jul 15 2018 8:40AM Chest tightness Jul 15 2018 11:20AM Pre-syncope Jul 15 2018 11:20AM Chest pressure Jul 23 2018 10:17AM SOB (shortness of breath) on exertion Jul 23 2018 10:17AM Fatigue Jul 23 2018 10:17AM Neuropathy Jul 23 2018 10:17AM Neck pain Aug 08 2018 11:08AM Cervical radiculopathy Aug 08 2018 11:08AM Lumbar back pain with radiculopathy affecting lower extremity Aug 08 2018 11:08AM Lower extremity edema Aug 14 2018 9:26AM Abdominal bloating Aug 14 2018 9:26AM Cervical stenosis of spine Sep 02 2018 11:04AM Bronchitis Sep 02 2018 11:04AM Cervical radiculopathy Sep 02 2018 11:04AM Acute frontal sinusitis, recurrence not specified Aug 29 2018 9:25AM Stress incontinence in female Aug 29 2018 9:25AM Cervical stenosis of spine Sep 08 2018 2:05PM Lumbar pain with radiation down both legs Sep 08 2018 2:05PM Hypotension, unspecified hypotension type Sep 08 2018 2:05PM Neurogenic orthostatic hypotension Oct 01 2018 2:15PM Pre-syncope Oct 01 2018 2:15PM Neurogenic orthostatic hypotension Oct 01 2018 3:38PM Pre-syncope Oct 01 2018 3:38PM Cervical radiculopathy Nov 04 2018 8:39AM Spinal stenosis in cervical region Nov 04 2018 8:39AM Herniated nucleus pulposus, C5-6 Nov 04 2018 8:39AM Cervical spondylosis with myelopathy Nov 04 2018 8:39AM Obesity (BMI 30-39.9) Nov 04 2018 8:39AM Lumbar spondylolysis Nov 04 2018 8:39AM Cervical radiculopathy Nov 07 2018 10:28AM Spinal stenosis in cervical region Nov 07 2018 10:28AM Herniated nucleus pulposus, C5-6 Nov 07 2018 10:28AM Cervical spondylosis with myelopathy Nov 07 2018 10:28AM Lumbar spondylolysis Nov 07 2018 10:28AM Obesity (BMI 30-39.9) Nov 07 2018 10:28AM Preop examination Nov 07 2018 10:28AM Payers Insurance Name Company Name Plan Name Plan Number Policy Number Policy Group Number Start Date WPS - VAPCCC - 's Choice WPS VACAA [id number] N/A [facility] For Life [id number] N/A [facility] [id number] N/A History of Encounters Visit Date Visit Type Provider 11/04/2018 Office visit Austin Huitron MD 10/01/[address] Austin Austin MD 09/08/2018 Office visit Magdalena Chino PERMANENT WAVER 09/02/2018 Office visit Magdalena Chino PERMANENT WAVER 08/29/2018 Office visit Magdalena Chino PERMANENT WAVER 08/19/[address] Austin Austin MD 08/14/2018 Office visit Magdalena Chino PERMANENT WAVER 08/08/2018 Office visit Magdalena Chino PERMANENT WAVER 07/28/2018 [facility] Abigail Nava MD 07/23/2018 Office visit Magdalena Chino PERMANENT WAVER 07/15/[address] Austin Austin MD 05/19/2018 Office visit Claude Rodriguez MD 05/09/[address] Austin Austin MD 05/08/2018 [facility] Abigail Nava MD 04/29/[address] Austin Austin MD 04/25/2018 Office visit Nicholas Duarte MD 03/24/2018 Procedures Nicholas Duarte MD 03/18/[address] Austin Austin MD 03/06/2018 Office visit Nicholas Duarte MD
--- OUTSIDE RECORDS SUMMARY | 2018-11-21 23:53 | XMS REPORT ---
Author Author Austin Huitron Organization [facility] Address [address] [place], [place] [id number] Care Team Providers Care Radio Presenter Name Role Phone Austin Huitron PCP Austin Austin PreferredProvider Allergies and Adverse Reactions Name Reaction Notes PENICILLINS morphine Methotrexate Latex losartan Imitrex Plan of Treatment Planned Activity Comments Planned Date Planned Time Plan/Goal Referral to Dr. Huitron 11/04/2018 8:30 AM EKG. 05/08/2018 12:00 AM Holter monitoring 10/01/2018 12:00 AM Medications Active Name Start Date [...] 12:00 AM Solu-Medrol, Up to 125 Mg [facility]# [id number] Reviewed Results Summary Date and Description Results [...] 8:39AM Lumbar spondylolysis Nov 04 2018 8:39AM Payers Insurance Name Company Name Plan Name Plan Number Policy Number Policy Group Number Start Date WPS - VAPCCC - 's Choice WPS VACAA [id number] N/A [place] [facility] For Life [id number] N/A Veterans Administration [facility] [id number] N/A History of Encounters Visit Date Visit Type Provider 11/04/2018 Office visit Austin Huitron MD 10/01/[address] Austin Austin MD 09/08/2018 Office visit Magdalena Chino MOTORIZED SQUAD SERGEANT 09/02/2018 Office visit Magdalena Chino MOTORIZED SQUAD SERGEANT 08/29/2018 Office visit Magdalena Chino MOTORIZED SQUAD SERGEANT 08/19/[address] Austin Austin MD 08/14/2018 Office visit Magdalena Chino MOTORIZED SQUAD SERGEANT 08/08/2018 Office visit Magdalena Chino MOTORIZED SQUAD SERGEANT 07/28/2018 [facility] Wang Nava MD 07/23/2018 Office visit Magdalena Chino MOTORIZED SQUAD SERGEANT 07/15/[address] Austin Austin MD 05/19/2018 Office visit Claude Rodriguez MD 05/09/[address] Austin Austin MD 05/08/2018 [facility] Wang Nava MD 04/29/[address] Austin Austin MD 04/25/2018 Office visit Nicholas Duarte MD 03/24/2018 Procedures Nicholas Duarte MD 03/18/[address] Austin Austin MD 03/06/2018 Office visit Nicholas Duarte MD
--- OUTSIDE RECORDS SUMMARY | 2018-11-21 23:54 | XMS REPORT ---
Author Austin Bagley [facility] Address [address] [place], [place] [id number] Care Team Providers Care Silver Spray Worker Name Role Phone Austin Austin PCP Austin Austin PreferredProvider Allergies and Adverse [...] topical liquid 09/12/2018 apply externally as directed Name Start Date Expiration Date SIG Comments [...] HC BMI BSA BMI Percentile O2 Sat(%) 10/01/2018 2:09:00 PM 138 mmHg 72 mmHg 102 bpm 17 rpm 98.1 F 241 lbs 63 in 42.6908 kg/m 2.2043 m 99 % 09/08/2018 2:00:00 PM 134 mmHg 78 mmHg 81 bpm 17 rpm 98.2 F 239 lbs 63 in 42.34 kg/m2 2.20 m2 99 % 09/02/2018 11:00:00 AM 132 mmHg 78 mmHg 78 bpm 18 rpm 98.4 F 240.125 lbs 63 in 42.5358 kg/m 2.2003 m 98 % 08/29/2018 9:17:00 AM 122 mmHg 68 mmHg 67 bpm 18 rpm 98.8 F 244.5 lbs 63 in 43.31 kg/m2 2.22 m2 99 % 08/19/2018 10:27:00 AM 108 mmHg 72 mmHg 08/14/2018 9:23:00 AM 134 mmHg 78 mmHg 90 bpm 18 rpm 98.6 F 242.125 lbs 63 in 42.8901 kg/m 2.2095 m 98 % 08/08/2018 11:03:00 AM 124 mmHg 78 mmHg 82 bpm 18 rpm 98.2 F 235.125 lbs 65 in 39.1264 kg/m 2.21 m2 98 % 07/23/2018 9:58:00 AM 132 mmHg 76 mmHg 82 bpm 18 rpm 99.1 F 232.5 lbs 65 in 38.69 kg/m2 2.1992 m 97 % 07/15/2018 9:31:00 AM 90 mmHg 72 mmHg 89 bpm 07/15/2018 9:30:00 AM 92 mmHg 68 mmHg 82 bpm 07/15/2018 9:28:00 AM 108 mmHg 80 mmHg 74 bpm 07/15/2018 8:29:00 AM 118 mmHg 72 mmHg 84 bpm 18 rpm 98.6 F 236.375 lbs 65 in 39.33 kg/m2 2.2175 m 98 % 05/19/2018 2:43:00 PM 116 mmHg 69 mmHg 76 bpm 98.1 F 233 lbs 65 in 38.7728 kg/m 2.20 m2 05/09/2018 1:55:00 PM 128 mmHg 78 mmHg 99 bpm 18 rpm 98.8 F 236.5 lbs 65 in 39.36 kg/m2 2.2181 m 97 % 04/29/2018 1:27:00 PM 132 mmHg 76 mmHg 85 bpm 18 rpm 98.8 F 236.375 lbs 65 in 39.3345 kg/m 2.22 m2 99 % 04/25/2018 11:31:00 AM 130 mmHg 100 mmHg 82 bpm 14 rpm 98.8 F 236.5 lbs 65 in 39.36 kg/m2 2.2181 m 96 % 03/18/2018 1:19:00 PM 104 mmHg 6 mmHg 89 bpm 18 rpm 98.2 F 231.125 lbs 65 in 38.4608 kg/m 2.19 m2 98 % 03/06/2018 3:27:00 PM 124 mmHg 74 mmHg 80 bpm 14 rpm 98.6 F 234.25 lbs 65 in 38.98 kg/m2 2.2075 m 99 % Social History Name [...] 12:00 AM Solu-Medrol, Up to 125 Mg [facility]# [id number] Reviewed Results Summary Date and Description Results [...] 2018 3:38PM Pre-syncope Oct 01 2018 3:38PM Payers Insurance Name Company Name Plan Name Plan Number Policy Number Policy Group Number Start Date WPS - VAPCCC - 's Choice WPS VACAA [id number] N/A [facility] For Life [id number] N/A [facility] Administration [id number] N/A History of Encounters Visit Date Visit Type Provider 10/01/[address] Austin Austin MD 09/08/2018 Office visit Magdalena Chino FIREFIGHTER TYPE ONE 09/02/2018 Office visit Magdalena Murilloimmett FIREFIGHTER TYPE ONE 08/29/2018 Office visit Magdalena Lambertmett FIREFIGHTER TYPE ONE 08/19/[address] Austin Austin MD 08/14/2018 Office visit Magdalena Chino FIREFIGHTER TYPE ONE 08/08/2018 Office visit Magdalena Lambertmett FIREFIGHTER TYPE ONE 07/28/2018 [facility] Wang Nava MD 07/23/2018 Office visit Magdalena Chino FIREFIGHTER TYPE ONE 07/15/[address] Austin Austin MD 05/19/2018 Office visit Claude Rodriguez MD 05/09/[address] Austin Austin MD 05/08/2018 [facility] Wang Nava MD 04/29/[address] Austin Austin MD 04/25/2018 Office visit Nicholas Duarte MD 03/24/2018 Procedures Nicholas Duarte MD 03/18/[address] Austin Austin MD 03/06/2018 Office visit Nicholas Duarte MD
--- OUTSIDE RECORDS SUMMARY | 2018-11-21 23:54 | XMS REPORT ---
Author Author Austin Huitron Organization [facility] Address [address] [place], [place] [id number] Care Team Providers Care Hall Supervisor Name Role Phone Austin Huitron PCP Austin [...] 12:00 AM Solu-Medrol, Up to 125 Mg [facility]# [id number] Reviewed Results Summary Date and Description Results [...] Obesity (BMI 30-39.9) Nov 04 2018 8:39AM Payers Insurance Name Company Name Plan Name Plan Number Policy Number Policy Group Number Start Date WPS - VAPCCC - 's Choice WPS VACAA [id number] N/A [place] [facility] Life [id number] N/A [facility] [id number] N/A History of Encounters Visit Date Visit Type Provider 11/04/2018 Office visit Austin Huitron MD 10/01/[address] Austin Austin MD 09/08/2018 Office visit Magdalena Chino TRAIL CONSTRUCTION WORKER 09/02/2018 Office visit Magdalena Chino TRAIL CONSTRUCTION WORKER 08/29/2018 Office visit Magdalena Chino TRAIL CONSTRUCTION WORKER 08/19/[address] Austin Austin MD 08/14/2018 Office visit Magdalena Chino TRAIL CONSTRUCTION WORKER 08/08/2018 Office visit Magdalena Chino TRAIL CONSTRUCTION WORKER 07/28/2018 [facility] Wang Nava MD 07/23/2018 Office visit Magdalena Chino TRAIL CONSTRUCTION WORKER 07/15/[address] Austin Austin MD 05/19/2018 Office visit Claude Rodriguez MD 05/09/[address] Austin Austin MD 05/08/2018 [facility] Wang Nava MD 04/29/[address] Austin Austin MD 04/25/2018 Office visit Nicholas Duarte MD 03/24/2018 Procedures Nicholas Duarte MD 03/18/[address] Austin Austin MD 03/06/2018 Office visit Nicholas Duarte MD
--- OUTSIDE RECORDS SUMMARY | 2018-11-21 23:55 | XMS REPORT ---
Author Austin Bagley [facility] Address [address] [place], [place] [phone] Care Team Providers Care Oven Operator Name Role Phone Austin Austin PCP Austin [...] 12:00 AM Solu-Medrol, Up to 125 Mg [facility]# [id number] Reviewed Results Summary Date and Description Results [...] - VAPCCC - 's Choice WPS VACAA [id number] N/A [facility] For Life [id number] N/A [facility] Administration [id number] N/A History of Encounters Visit Date Visit Type Provider 10/01/[address] Austin Austin MD 09/08/2018 Office visit Magdalena Chino GRIT BLASTER 09/02/2018 Office visit Magdalena Lambertmett GRIT BLASTER 08/29/2018 Office visit Magdalena Lambertmett GRIT BLASTER 08/19/[address] Austin Austin MD 08/14/2018 Office visit Magdalena Lambertmett GRIT BLASTER 08/08/2018 Office visit Magdalena Lambertmett GRIT BLASTER 07/23/2018 Office visit Magdalena Chino GRIT BLASTER 07/15/[address] Austin Austin MD 05/19/2018 Office visit Claude Rodriguez MD 05/09/[address] Austin Austin MD 05/08/2018 [facility] Wang Nava MD 04/29/[address] Austin Austin MD 04/25/2018 Office visit Nicholas Duarte MD 03/24/2018 Procedures Nicholas Duarte MD 03/18/[address] Austin Austin MD 03/06/2018 Office visit Nicholas Duarte MD
--- OUTSIDE RECORDS SUMMARY | 2018-11-21 23:55 | XMS REPORT ---
Author Austin Bagley [facility] Address [address] [place], [place] [id number] Care Team Providers Care Casing In Line Feeder Name Role Phone Austin Austin PCP Austin [...] 12:00 AM Solu-Medrol, Up to 125 Mg [facility]# [id number] Reviewed Results Summary Date and Description Results [...] - VAPCCC - 's Choice WPS VACAA [id number] N/A [facility] For Life [id number] N/A [facility] Administration [id number] N/A History of Encounters Visit Date Visit Type Provider 10/01/[address] Austin Austin MD 09/08/2018 Office visit Magdalena Chino HEALTH AIDE 09/02/2018 Office visit Magdalena Lambertmett HEALTH AIDE 08/29/2018 Office visit Magdalena Lambertmett HEALTH AIDE 08/19/[address] Austin Austin MD 08/14/2018 Office visit Magdalena Lambertmett HEALTH AIDE 08/08/2018 Office visit Magdalena Lambertmett HEALTH AIDE 07/23/2018 Office visit Magdalena Chino HEALTH AIDE 07/15/[address] Austin Austin MD 05/19/2018 Office visit Claude Rodriguez MD 05/09/[address] Austin Austin MD 05/08/2018 [facility] Wang Nava MD 04/29/[address] Austin Austin MD 04/25/2018 Office visit Nicholas Duarte MD 03/24/2018 Procedures Nicholas Duarte MD 03/18/[address] Austin Austin MD 03/06/2018 Office visit Nicholas Duarte MD
--- OUTSIDE RECORDS SUMMARY | 2018-11-21 23:56 | XMS REPORT ---
Author Author Austin Austin [facility] Address [address] [place], [place] [address] Care Team Providers Care Development Technician Name Role Phone Austin Austin PCP Austin Austin PreferredProvider Allergies and Adverse Reactions Name Reaction Notes PENICILLINS morphine Methotrexate Latex losartan Imitrex Plan of Treatment Planned Activity Comments Planned Date Planned Time Plan/Goal Referral to Dr. Huitron 11/04/2018 8:30 AM EKG. 05/08/2018 12:00 AM Medications Active Name Start Date [...] 12:00 AM Solu-Medrol, Up to 125 Mg [facility]# [id number] Reviewed Results Summary Date and Description Results [...] 2018 2:15PM Pre-syncope Oct 01 2018 2:15PM Payers Insurance Name Company Name Plan Name Plan Number Policy Number Policy Group Number Start Date WPS - VAPCCC - [place]'s Choice WPS VACAA [id number] N/A [place] [facility] For Life [id number] N/A Veterans Administration Veterans [facility] [id number] N/A History of Encounters Visit Date Visit Type Provider 10/01/[address] Austin Austin MD 09/08/2018 Office visit Magdalena Chino DRILLING INSPECTOR 09/02/2018 Office visit Magdalena Hayes Matti DRILLING INSPECTOR 08/29/2018 Office visit Magdalena Murilloimmett DRILLING INSPECTOR 08/19/[address] Austin Austin MD 08/14/2018 Office visit Magdalena Hayes Matti DRILLING INSPECTOR 08/08/2018 Office visit Magdalena Murilloimmett DRILLING INSPECTOR 07/23/2018 Office visit Magdalena Murilloimmett DRILLING INSPECTOR 07/15/[address] Austin Austin MD 05/19/2018 Office visit Claude Rodriguez MD 05/09/[address] Austin Austin MD 05/08/2018 [facility] Abigail Nava MD 04/29/[address] Austin Austin MD 04/25/2018 Office visit Nicholas Duarte MD 03/24/2018 Procedures Nicholas Duarte MD 03/18/[address] Austin Austin MD 03/06/2018 Office visit Nicholas Duarte MD
--- OUTSIDE RECORDS SUMMARY | 2018-11-21 23:56 | XMS REPORT ---
Author Author Austin Austin [facility] Address [address] [place], [place] [address] Care Team Providers Care Vehicle Operator Name Role Phone Austin Austin PCP [...] 12:00 AM Solu-Medrol, Up to 125 Mg [facility]# [id number] Reviewed Results Summary Date and Description Results [...] Number Start Date WPS - VAPCCC - [place]'s Choice WPS VACAA [id number] N/A [place] [facility] For Life [id number] N/A Veterans Administration Veterans Administration [id number] N/A History of Encounters Visit Date Visit Type Provider 10/01/[address] Austin Austin MD 09/08/2018 Office visit Magdalena Chino STITCHER FEEDER 09/02/2018 Office visit Magdalena Hayes Matti STITCHER FEEDER 08/29/2018 Office visit Magdalena Murilloimmett STITCHER FEEDER 08/19/[address] Austin Austin MD 08/14/2018 Office visit Magdalena Hayes Matti STITCHER FEEDER 08/08/2018 Office visit Magdalena Murilloimmett STITCHER FEEDER 07/23/2018 Office visit Magdalena Murilloimmett STITCHER FEEDER 07/15/[address] Austin Austin MD 05/19/2018 Office visit Claude Rodriguez MD 05/09/[address] Austin Austin MD 05/08/2018 [facility] Abigail Nava MD 04/29/[address] Austin Austin MD 04/25/2018 Office visit Nicholas Duarte MD 03/24/2018 Procedures Nicholas Duarte MD 03/18/[address] Austin Austin MD 03/06/2018 Office visit Nicholas Duarte MD
--- OUTSIDE RECORDS SUMMARY | 2018-11-21 23:57 | XMS REPORT ---
Author Author Magdalena Chino [facility] Address [address] [place], [place] [id number] Care Team Providers Care Chain Testing Machine Operator Name Role Phone Magdalena Chino PCP Austin Austin PreferredProvider Allergies and Adverse Reactions Name Reaction Notes PENICILLINS morphine Methotrexate Latex losartan Imitrex Plan of Treatment Planned Activity Comments Planned Date Planned Time Plan/Goal EKG. 05/08/2018 12:00 AM Medications Active Name Start Date Estimated Completion Date SIG Comments gabapentin 600 mg oral tablet take 1 tablet (600 mg) by oral route 3 times per day trazodone 100 mg oral tablet take 1 tablet (100 mg) by oral route 2 times per day lamotrigine 25 mg oral tablet take 2 tablets by oral route daily levothyroxine 137 mcg oral tablet take 1 tablet (137 mcg) by oral route once daily phenazopyridine 200 mg oral tablet take 1 tablet (200 mg) by oral route 3 times per day after meals topiramate 100 mg oral tablet take 1 tablet (100 mg) by oral route 2 times per day Metamucil 3.4 gram/5.4 gram oral powder 05/26/2018 use as directed by oral route daily Scrub Chlorhexidine Gluconate 4 % topical liquid 05/26/2018 apply externally as directed Myrbetriq 50 mg oral tablet extended release 24 hr 06/25/2018 06/20/2019 take 1 tablet (50 mg) by oral route once daily swallowing whole with water. Do not crush, chew and/or divide. for 30 days Linzess 72 mcg oral capsule take 1 capsule (72 mcg) by oral route once daily on an empty stomach at least 30 minutes before 1st meal of the day hydrochlorothiazide 12.5 mg oral tablet 08/15/2018 09/14/2018 take 1 tablet (12.5 mg) by oral route once daily for 30 days duloxetine 40 mg oral capsule,delayed release(DR/EC) take 1 capsule (40 mg) by oral route once daily Flonase Allergy Relief 50 mcg/actuation nasal spray,suspension 08/29/2018 08/24/2019 spray 1 - 2 sprays (50 - 100 mcg) in each nostril by intranasal route once daily for 90 days Name Start Date Expiration Date SIG Comments ferrous sulfate 325 mg (65 mg iron) oral tablet 05/09/2018 08/07/2018 take 1 tablet (325 mg) by oral route once daily for 30 days Zofran 4 mg oral tablet 07/15/2018 07/20/2018 take 1 tablet by oral route every 8 hours as needed for 5 days doxycycline hyclate 100 mg oral capsule 08/29/2018 09/05/2018 take 1 capsule (100 mg) by oral route every 12 hours for 7 days prednisone 20 mg oral tablet 09/02/2018 09/07/2018 take 2 tablets (40 mg) by oral route once daily for 5 days Discontinued Name Start Date Discontinued Date SIG Comments duloxetine 30 mg oral capsule,delayed release(DR/EC) 08/29/2018 take 1 capsule (30 mg) by oral route once daily Problem List Not available. Vital Signs Date Time BP-Sys(mm[Hg] BP-Fang(mm[Hg]) HR(bpm) RR(rpm) Temp WT HT HC BMI BSA BMI Percentile O2 Sat(%) 09/08/2018 2:00:00 PM 134 mmHg 78 mmHg [...] F 244.5 lbs 63 in 43.31 kg/m2 2.2203 m 99 % 08/19/2018 10:27:00 AM [...] lbs 65 in 39.3345 kg/m 2.2175 m 99 % 04/25/2018 11:31:00 AM 130 mmHg 100 mmHg 82 bpm 14 rpm 98.8 F 236.5 lbs 65 in 39.36 kg/m2 2.22 m2 96 % 03/18/2018 1:19:00 PM 104 mmHg 6 mmHg 89 bpm 18 rpm 98.2 F 231.125 lbs 65 in 38.4608 kg/m 2.1927 m 98 % 03/06/2018 3:27:00 PM 124 mmHg 74 mmHg 80 bpm 14 rpm 98.6 F 234.25 lbs 65 in 38.98 kg/m2 2.21 m2 99 % Social History Name Description Comments [...] 12:00 AM Solu-Medrol, Up to 125 Mg [facility]# [address]-06 Reviewed Results Summary Date and Description Results [...] unspecified hypotension type Sep 08 2018 2:05PM Payers Insurance Name Company Name Plan Name Plan Number Policy Number Policy Group Number Start Date WPS - VAPCCC - 's Choice WPS VACAA [id number] N/A [place] [facility] For Life [id number] N/A Veterans Administration Veterans Administration [id number] N/A History of Encounters Visit Date Visit Type Provider 09/08/2018 Office visit Magdalena Chino AUTO CARRIER DRIVER 09/02/2018 Office visit Magdalena Chino AUTO CARRIER DRIVER 08/29/2018 Office visit Magdalena Chino AUTO CARRIER DRIVER 08/19/[address] Austin Austin MD 08/14/2018 Office visit Magdalena Chino AUTO CARRIER DRIVER 08/08/2018 Office visit Magdalena Chino AUTO CARRIER DRIVER 07/23/2018 Office visit Magdalena Chino AUTO CARRIER DRIVER 07/15/[address] Austin Austin MD 05/19/2018 Office visit Claude Rodriguez MD 05/09/[address] Austin Austin MD 05/08/2018 Rickey Nava MD 04/29/[address] Austin Austin MD 04/25/2018 Office visit Nicholas Duarte MD 03/24/2018 Procedures Nicholas Duarte MD 03/18/[address] Austin Austin MD 03/06/2018 Office visit Nicholas Duarte MD
--- OUTSIDE RECORDS SUMMARY | 2018-11-21 23:57 | XMS REPORT ---
Author Author Magdalena Chino [facility] Address [address] [place], [place] [address] Care Team Providers Care Brick Chimney Supervisor Name Role Phone Magdalena Chino PCP Austin [...] 12:00 AM Solu-Medrol, Up to 125 Mg [facility]# [id number] Reviewed Results Summary Date and Description Results [...] - VAPCCC - 's Choice WPS VACAA [id number] N/A [place] [facility] For Life [id number] N/A Veterans Administration Veterans Administration [id number] N/A History of Encounters Visit Date Visit Type Provider 09/08/2018 Office visit Magdalena Chino ANTHROPOMETRIST 09/02/2018 Office visit Magdalena Chino ANTHROPOMETRIST 08/29/2018 Office visit Magdalena Chino ANTHROPOMETRIST 08/19/[address] Austin Austin MD 08/14/2018 Office visit Magdalena Chino ANTHROPOMETRIST 08/08/2018 Office visit Magdalena Chino ANTHROPOMETRIST 07/23/2018 Office visit Magdalena Chino ANTHROPOMETRIST 07/15/[address] Austin Austin MD 05/19/2018 Office visit Claude Rodriguez MD 05/09/[address] Austin Austin MD 05/08/2018 Rickey Nava MD 04/29/[address] Austin Austin MD 04/25/2018 Office visit Nicholas Duarte MD 03/24/2018 Procedures Nicholas Duarte MD 03/18/[address] Austin Austin MD 03/06/2018 Office visit Nicholas Duarte MD
--- OUTSIDE RECORDS SUMMARY | 2018-11-21 23:58 | XMS REPORT ---
Author Author Magdalena Chino [facility] Address [address] [place], [place] [address] Care Team Providers Care Epidemiology Intern Name Role Phone Magdalena Chino PCP Austin [...] AM Solu-Medrol, Up to 125 Mg [facility]# [id number] Reviewed Results Summary Date and Description Results [...] incontinence in female Aug 29 2018 9:25AM Payers Insurance Name Company Name Plan Name Plan Number Policy Number Policy Group Number Start Date WPS - VAPCCC - 's Choice WPS VACAA [id number] N/A [facility] For Life [id number] N/A Veterans Administration Veterans Administration [id number] N/A History of Encounters Visit Date Visit Type Provider 09/08/2018 Office visit Magdalena Chino TANNING SALON ATTENDANT 09/02/2018 Office visit Magdalena Chino TANNING SALON ATTENDANT 08/29/2018 Office visit Magdalena Chino TANNING SALON ATTENDANT 08/19/[address] Austin Austin MD 08/14/2018 Office visit Magdalena Chino TANNING SALON ATTENDANT 08/08/2018 Office visit Magdalena Chino TANNING SALON ATTENDANT 07/23/2018 Office visit Magdalena Chino TANNING SALON ATTENDANT 07/15/[address] Austin Austin MD 05/19/2018 Office visit Claude Rodriguez MD 05/09/[address] Austin Austin MD 05/08/2018 [facility] Wang Nava MD 04/29/[address] Austin Austin MD 04/25/2018 Office visit Nicholas Duarte MD 03/24/2018 Procedures Nicholas Duarte MD 03/18/[address] Austin Austin MD 03/06/2018 Office visit Nicholas Duarte MD
--- OUTSIDE RECORDS SUMMARY | 2018-11-21 23:58 | XMS REPORT ---
Author Author Magdalena Chino [facility] Address [address] [place], [place] [address] Care Team Providers Care Auger Mill Operator Name Role Phone Magdalena Chino PCP [...] QUANT Returned 03/18/2018 12:00 AM ANTINUCLEAR ANTIBODIES JOSEOL Returned 03/18/2018 12:00 AM TOTAL CORTISOL Returned [...] 12:00 AM Solu-Medrol, Up to 125 Mg [facility]# [id number] Reviewed Results Summary Date and Description Results [...] - VAPCCC - 's Choice WPS VACAA [id number] N/A [facility] For Life [id number] N/A Veterans Administration Veterans Administration [id number] N/A History of Encounters Visit Date Visit Type Provider 09/08/2018 Office visit Magdalena Chino FOREIGN BANKNOTE TELLER TRADER 09/02/2018 Office visit Magdalena Chino FOREIGN BANKNOTE TELLER TRADER 08/29/2018 Office visit Magdalena Chino FOREIGN BANKNOTE TELLER TRADER 08/19/[address] Austin Austin MD 08/14/2018 Office visit Magdalena Chino FOREIGN BANKNOTE TELLER TRADER 08/08/2018 Office visit Magdalena Chino FOREIGN BANKNOTE TELLER TRADER 07/23/2018 Office visit Magdalena Chino FOREIGN BANKNOTE TELLER TRADER 07/15/[address] Austin Austin MD 05/19/2018 Office visit Claude Rodriguez MD 05/09/[address] Austin Austin MD 05/08/2018 [facility] Wang Nava MD 04/29/[address] Austin Austin MD 04/25/2018 Office visit Nicholas Duarte MD 03/24/2018 Procedures Nicholas Duarte MD 03/18/[address] Austin Austin MD 03/06/2018 Office visit Nicholas Duarte MD
[2018-11-21] MEDS ORDERED: ONDANSETRON 4 MG/2 ML (SDV) Z0FRAN ONE (23:59)
[2018-11-21] MEDS ORDERED: fentaNYL INJECTION 100 MCG/2 ML AMP ONE (23:59)
--- OUTSIDE RECORDS SUMMARY | 2018-11-21 23:59 | XMS REPORT ---
Author Author Magdalena Chino [facility] Address [address] [place], [place] [address] Care Team Providers Care Dianetic Counselor Name Role Phone Magdalena Chino PCP Austin [...] (40 mg) by oral route once daily doxycycline hyclate 100 mg oral capsule 08/29/2018 09/05/2018 take 1 capsule (100 mg) by oral route every 12 hours for 7 days Flonase Allergy Relief 50 mcg/actuation nasal spray,suspension 08/29/2018 08/24/2019 spray 1 - 2 sprays (50 - 100 mcg) in each nostril by intranasal route once daily for 90 days prednisone 20 mg oral tablet 09/02/2018 09/07/2018 take 2 tablets (40 mg) by oral route once daily for 5 days Name Start Date Expiration Date SIG Comments ferrous sulfate 325 mg (65 mg iron) oral tablet 05/09/2018 08/07/2018 take 1 tablet (325 mg) by oral route once daily for 30 days Zofran 4 mg oral tablet 07/15/2018 07/20/2018 take 1 tablet by oral route every 8 hours as needed for 5 days Discontinued Name Start Date Discontinued Date SIG Comments duloxetine 30 mg oral capsule,delayed release(DR/EC) 08/29/2018 take 1 capsule (30 mg) by oral route once daily Problem List Not available. Vital Signs Date Time BP-Sys(mm[Hg] BP-Fang(mm[Hg]) HR(bpm) RR(rpm) Temp WT HT HC BMI BSA BMI Percentile O2 Sat(%) 09/02/2018 11:00:00 AM 132 mmHg 78 mmHg [...] F 232.5 lbs 65 in 38.69 kg/m2 2.20 m2 97 % 07/15/2018 9:31:00 AM 90 mmHg 72 mmHg 89 bpm 07/15/2018 9:30:00 AM 92 mmHg 68 mmHg 82 bpm 07/15/2018 9:28:00 AM 108 mmHg 80 mmHg 74 bpm 07/15/2018 8:29:00 AM 118 mmHg 72 mmHg 84 bpm 18 rpm 98.6 F 236.375 lbs 65 in 39.33 kg/m2 2.22 m2 98 % 05/19/2018 2:43:00 PM 116 mmHg 69 mmHg 76 bpm 98.1 F 233 lbs 65 in 38.7728 kg/m 2.2016 m 05/09/2018 1:55:00 PM 128 mmHg 78 mmHg 99 bpm 18 rpm 98.8 F 236.5 lbs 65 in 39.36 kg/m2 2.22 m2 97 % 04/29/2018 1:27:00 PM 132 mmHg [...] AM MRI NECK SPINE W/O DYE Returned 08/29/2018 12:00 AM Solu-Medrol, Up to 125 Mg [facility]# [id number] Reviewed 08/14/2018 12:00 AM COMPREHEN METABOLIC PANEL Returned 08/14/2018 12:00 AM URINALYSIS AUTO W/SCOPE Returned Results Summary Date and Description Results 03/06/2018 [...] 11:04AM Cervical radiculopathy Sep 02 2018 11:04AM Payers Insurance Name Company Name Plan Name Plan Number Policy Number Policy Group Number Start Date WPS - VAPCCC - 's Choice WPS VACAA [id number] N/A [facility] For Life [id number] N/A [facility] [id number] N/A History of Encounters Visit Date Visit Type Provider 09/02/2018 Office visit Magdalena Chino MOSAIC FLOOR LAYER 08/29/2018 Office visit Magdalena Chino MOSAIC FLOOR LAYER 08/19/[address] Austin Austin MD 08/14/2018 Office visit Magdalena Chino MOSAIC FLOOR LAYER 08/08/2018 Office visit Magdalena Chino MOSAIC FLOOR LAYER 07/23/2018 Office visit Magdalena Chino MOSAIC FLOOR LAYER 07/15/[address] Austin Austin MD 05/19/2018 Office visit Claude Rodriguez MD 05/09/[address] Austin Austin MD 05/08/2018 [facility] Wang Nava MD 04/29/[address] Austin Austin MD 04/25/2018 Office visit Nicholas Duarte MD 03/24/2018 Procedures Nicholas Duarte MD 03/18/[address] Austin Austin MD 03/06/2018 Office visit Nicholas Duarte MD
--- OUTSIDE RECORDS SUMMARY | 2018-11-21 23:59 | XMS REPORT ---
Author Author Magdalena Chino [facility] Address [address] [place], [place] [address] Care Team Providers Care Sales Director Name Role Phone Magdalena Chino PCP Austin [...] Mg [facility]# [address]-23 Reviewed Results Summary Date and Description Results [...] - VAPCCC - 's Choice WPS VACAA [id number] N/A [facility] For Life [id number] N/A [facility] [id number] N/A History of Encounters Visit Date Visit Type Provider 09/02/2018 Office visit Magdalena Chino DISTRICT TRAFFIC CHIEF 08/29/2018 Office visit Magdalena Chino DISTRICT TRAFFIC CHIEF 08/19/[address] Austin Austin MD 08/14/2018 Office visit Magdalena Chino DISTRICT TRAFFIC CHIEF 08/08/2018 Office visit Magdalena Chino DISTRICT TRAFFIC CHIEF 07/23/2018 Office visit Magdalena Chino DISTRICT TRAFFIC CHIEF 07/15/[address] Austin Austin MD 05/19/2018 Office visit Claude Rodriguez MD 05/09/[address] Austin Austin MD 05/08/2018 [facility] Wang Nava MD 04/29/[address] Austin Austin MD 04/25/2018 Office visit Nicholas Duarte MD 03/24/2018 Procedures Nicholas Duarte MD 03/18/[address] Austin Austin MD 03/06/2018 Office visit Nicholas Daurte MD
[2018-11-22] MEDS ORDERED: ONDANSETRON 4 MG/2 ML (SDV) Z0FRAN IVP ONE
[2018-11-22] MEDS ORDERED: fentaNYL INJECTION 100 MCG/2 ML AMP IVP ONE
--- OUTSIDE RECORDS SUMMARY | 2018-11-22 | XMS REPORT ---
Author Author Magdalena Chino [facility] Address [address] [place], [place] [address] Care Team Providers Care Music Professionals Name Role Phone Magdalena Chino PCP Austin Austin PreferredProvider Allergies and Adverse Reactions Name Reaction Notes PENICILLINS morphine Methotrexate Latex losartan Imitrex Plan of Treatment Planned Activity Comments Planned Date Planned Time Plan/Goal EKG. 05/08/2018 12:00 AM MRI CERVICAL SPINE W/O CONTRAST 08/11/2018 12:00 AM Medications Active Name Start Date Estimated Completion Date SIG Comments gabapentin 600 mg oral tablet take 1 tablet (600 mg) by oral route 3 times per day trazodone 100 mg oral tablet take 1 tablet (100 mg) by oral route 2 times per day duloxetine 30 mg oral capsule,delayed release(DR/EC) take 1 capsule (30 mg) by oral route once daily lamotrigine 25 mg oral tablet take 2 [...] 8 hours as needed for 5 days Problem List Not available. Vital Signs Date Time BP-Sys(mm[Hg] BP-Fang(mm[Hg]) HR(bpm) RR(rpm) Temp WT HT HC BMI BSA BMI Percentile O2 Sat(%) 08/14/2018 9:23:00 AM 134 mmHg 78 mmHg [...] 12:[address] THORAX W/O DYE Returned 08/14/2018 12:00 AM COMPREHEN [...] 9:26AM Abdominal bloating Aug 14 2018 9:26AM Payers Insurance Name Company Name Plan Name Plan Number Policy Number Policy Group Number Start Date WPS - VAPCCC - 's Choice WPS VACAA [id number] N/A [facility] [place] For Life [id number] N/A Veterans Administration Veterans Administration [id number] N/A History of Encounters Visit Date Visit Type Provider 08/14/2018 Office visit Magdalena Chino CABINETMAKER HELPER 08/08/2018 Office visit Magdalena Chino CABINETMAKER HELPER 07/23/2018 Office visit Magdalena Chino CABINETMAKER HELPER 07/15/[address] Austin Austin MD 05/19/2018 Office visit Claude Rodriguez MD 05/09/[address] Austin Austin MD 05/08/2018 [facility] Wang Nava MD 04/29/[address] Austin Austin MD 04/25/2018 Office visit Nicholas Duarte MD 03/24/2018 Procedures Nicholas Duarte MD 03/18/[address] Austin Austin MD 03/06/2018 Office visit Nicholas Duarte MD
--- OUTSIDE RECORDS SUMMARY | 2018-11-22 | XMS REPORT ---
Author Austin Bagley [facility] Address [address] [place], [place] [address] Care Team Providers Care Rewrite Editor Name Role Phone Austin Austin PCP Austin [...] oral route once daily for 30 days Name Start Date Expiration Date SIG [...] HC BMI BSA BMI Percentile O2 Sat(%) 08/19/2018 10:27:00 AM 108 mmHg 72 mmHg [...] Number Start Date WPS - VAPCCC - [place]'s Choice WPS VACAA [id number] N/A [facility] For Life [id number] N/A Veterans Administration Veterans Administration [id number] N/A History of Encounters Visit Date Visit Type Provider 08/19/[address] Austin Austin MD 08/14/2018 Office visit Magdalena Chino MIXED CROP AND LIVESTOCK FARM WORKER 08/08/2018 Office visit Magdalena Chino MIXED CROP AND LIVESTOCK FARM WORKER 07/23/2018 Office visit Magdalena Chino MIXED CROP AND LIVESTOCK FARM WORKER 07/15/[address] Austin Austin MD 05/19/2018 Office visit Claude Rodriguez MD 05/09/[address] Austin Austin MD 05/08/2018 [facility] Wang Nava MD 04/29/[address] Austin Austin MD 04/25/2018 Office visit Nicholas Duarte MD 03/24/2018 Procedures Nicholas Duarte MD 03/18/[address] Austin Austin MD 03/06/2018 Office visit Nicholas Duarte MD
--- OUTSIDE RECORDS SUMMARY | 2018-11-22 00:01 | XMS REPORT ---
Author Austin Bagley [facility] Address [address] [place], [place] [phone] Care Team Providers Care Financial Examiner Name Role Phone Austin Austin PCP Austin Austin PreferredProvider Allergies and Adverse Reactions Name Reaction Notes PENICILLINS morphine Methotrexate Latex losartan Imitrex Plan of Treatment Planned Activity Comments Planned Date Planned Time Plan/Goal EKG. 05/08/2018 12:00 AM MRI LUMBAR SPINE W/O CONTRAST 05/26/2018 12:00 AM CORTISOL AM 07/15/2018 12:00 AM ACTH 07/15/2018 12:00 AM Lipase measurement 07/15/2018 12:00 AM CKMB 07/15/2018 12:00 AM Troponin T measurement 07/15/2018 12:00 AM Medications Active Name Start Date [...] by oral route 2 times per day ferrous sulfate 325 mg (65 mg iron) oral tablet 05/09/2018 08/07/2018 take 1 tablet (325 mg) by oral route once daily for 30 days Metamucil 3.4 gram/5.4 gram oral powder 05/26/2018 [...] minutes before 1st meal of the day Problem List Not available. Vital Signs Date Time BP-Sys(mm[Hg] BP-Fang(mm[Hg]) HR(bpm) RR(rpm) Temp WT HT HC BMI BSA BMI Percentile O2 Sat(%) 07/15/2018 8:29:00 AM 118 mmHg 72 mmHg [...] AM DETECT AGENT NOS DNA QUANT Reviewed 07/03/2018 12:00 AM URNLS DIP STICK/TABLET RGNT AUTO W/O MICROSCOPY Returned Results Summary Date and Description Results [...] 8:40AM Adrenal insufficiency Jul 15 2018 8:40AM Payers Insurance Name Company Name Plan Name Plan Number Policy Number Policy Group Number Start Date WPS - VAPCCC - [place]'s Choice WPS VACAA [id number] N/A [facility] [id number] N/A Veterans Administration Veterans Administration [id number] N/A History of Encounters Visit Date Visit Type Provider 07/15/[address] Austin Austin MD 05/19/2018 Office visit Claude Rodriguez MD 05/09/[address] Austin Austin MD 05/08/2018 [facility] Wang Nava MD 04/29/[address] Austin Austin MD 04/25/2018 Office visit Nicholas Duarte MD 03/24/2018 Procedures Nicholas Duarte MD 03/18/[address] Austin Austin MD 03/06/2018 Office visit Nicholas Duarte MD
--- OUTSIDE RECORDS SUMMARY | 2018-11-22 00:01 | XMS REPORT ---
Author Author Magdalena Chino [facility] Address [address] [place] [id number] Care Team Providers Care Events Administrative Assistant Name Role Phone Magdalena Chino PCP Austin [...] Name Start Date Expiration Date SIG Comments Zofran 4 mg oral tablet 07/15/2018 07/20/2018 take 1 tablet by oral route every 8 hours as needed for 5 days Problem List Not available. Vital Signs Date Time BP-Sys(mm[Hg] BP-Fang(mm[Hg]) HR(bpm) RR(rpm) Temp WT HT HC BMI BSA BMI Percentile O2 Sat(%) 07/23/2018 9:58:00 AM 132 mmHg 76 mmHg [...] F 234.25 lbs 65 in 38.9808 kg/m 2.21 m2 99 % Social History Name [...] 12:[address] THORAX W/O DYE Returned Results Summary Date and Description Results [...] 2018 10:17AM Neuropathy Jul 23 2018 10:17AM Payers Insurance Name Company Name Plan Name Plan Number Policy Number Policy Group Number Start Date WPS - VAPCCC - 's Choice WPS VACAA [id number] N/A [facility] For Life [id number] N/A Veterans Administration Veterans Administration [id number] N/A History of Encounters Visit Date Visit Type Provider 07/23/2018 Office visit Magdalena Chino ACQUISITION CONSULTANT 07/15/[address] Austin Austin MD [...]
--- OUTSIDE RECORDS SUMMARY | 2018-11-22 00:01 | XMS REPORT ---
Author Austin Bagley [facility] Address [address] [place], [place] [phone] Care Team Providers Care Analysis Consultant Name Role Phone Austin Austin PCP Austin [...] AM Troponin T measurement 07/15/2018 12:00 AM ECHO 2D Complete - Adult 07/15/2018 12:00 AM Medications Active Name Start [...] BMI BSA BMI Percentile O2 Sat(%) 07/15/2018 9:31:00 AM 90 mmHg 72 mmHg [...] 2018 11:20AM Pre-syncope Jul 15 2018 11:20AM Payers Insurance Name Company Name Plan Name Plan Number Policy Number Policy Group Number Start Date WPS - VAPCCC - 's Choice WPS VACAA [id number] N/A [facility] For Life [id number] N/A Veterans Administration Veterans Administration [id number] N/A History of Encounters Visit Date Visit [...]
--- OUTSIDE RECORDS SUMMARY | 2018-11-22 00:02 | XMS REPORT ---
Author Author Claude Rodriguez Organization [facility] Address [address] [place], [place] [phone] Care Team Providers Care Bonding Machine Tender Name Role Phone Claude Rodriguez PCP Austin Austin PreferredProvider Allergies and Adverse Reactions Name Reaction Notes PENICILLINS morphine Methotrexate Latex losartan Imitrex Plan of Treatment Planned Activity Comments Planned Date Planned Time Plan/Goal EKG. 05/08/2018 12:00 AM MRI LUMBAR SPINE W/O CONTRAST 05/26/2018 12:00 AM Medications Active Name Start Date [...] crush, chew and/or divide. for 30 days Problem List Not available. Vital Signs Date Time BP-Sys(mm[Hg] BP-Fang(mm[Hg]) HR(bpm) RR(rpm) Temp WT HT HC BMI BSA BMI Percentile O2 Sat(%) 05/19/2018 2:43:00 PM 116 mmHg 69 mmHg [...] 12:44PM Cloudy urine Jul 03 2018 12:44PM Payers Insurance Name Company Name Plan Name Plan Number Policy Number Policy Group Number Start Date WPS - VAPCCC - 's Choice WPS VACAA [id number] N/A [place] [facility] For Life [id number] N/A [facility] Administration [id number] N/A History of Encounters Visit Date Visit Type Provider 05/19/2018 Office visit Claude Rodriguez MD 05/09/[address] Austin Austin MD 05/08/2018 [facility] Wang Nava MD 04/29/[address] Austin Austin MD 04/25/2018 Office visit Nicholas Duarte MD 03/24/2018 Procedures Nicholas Duarte MD 03/18/[address] Austin Austin MD 03/06/2018 Office visit Nicholas Duarte MD
--- OUTSIDE RECORDS SUMMARY | 2018-11-22 00:02 | XMS REPORT ---
Author Author Claude Rodriguez Organization [facility] Address [address] [place] [id number] Care Team Providers Care Energy Engineer Name Role Phone Claude Rodriguez PCP Austin Austin PreferredProvider Allergies and Adverse Reactions Name Reaction Notes PENICILLINS morphine Methotrexate Latex losartan Imitrex Plan of Treatment Planned Activity Comments Planned Date Planned Time Plan/Goal EKG. 05/08/2018 12:00 AM MRI LUMBAR SPINE W/O CONTRAST 05/26/2018 12:00 AM URINALYSIS ROUTINE C&S IF IND 07/03/2018 12:00 AM Medications Active Name Start Date [...] AM DETECT AGENT NOS DNA QUANT Reviewed Results Summary Date and Description Results [...] Number Start Date WPS - VAPCCC - [employer]'s Choice WPS VACAA [id number] N/[place] [facility] For Life [id number] N/A [facility] Administration [id number] N/A History of Encounters Visit Date Visit Type Provider 05/19/2018 Office visit Claude Rodriguez MD 05/09/[address] Austin Austin MD 04/29/[address] Austin Austin MD 04/25/2018 Office visit Nicholas Duarte MD 03/24/2018 Procedures Nicholas Duarte MD 03/18/[address] Austin Austin MD 03/06/2018 Office visit Nicholas Duarte MD
--- OUTSIDE RECORDS SUMMARY | 2018-11-22 00:03 | XMS REPORT ---
Author Author Claude Rodriguez Organization [facility] Address [address] [place], [place] [phone] Care Team Providers Care Branch Chief Name Role Phone Claude Rodriguez PCP Austin Austin PreferredProvider Allergies and Adverse Reactions Name Reaction Notes PENICILLINS morphine Methotrexate Latex losartan Imitrex Plan of Treatment Planned Activity Comments Planned Date Planned Time Plan/Goal EKG. 05/08/2018 12:00 AM TRICHOMONAS AMPLIFIED 05/19/2018 12:00 AM TRICHOMONAS AMPLIFIED 05/19/2018 12:00 AM MRI LUMBAR SPINE W/O CONTRAST [...] topical liquid 05/26/2018 apply externally as directed Name Start Date Expiration Date SIG Comments Myrbetriq 50 mg oral tablet extended release 24 hr 04/25/2018 05/25/2018 take 1 tablet (50 mg) by oral [...] Reviewed 05/19/2018 12:00 AM CULTURE SCREEN ONLY Returned 05/19/2018 12:00 AM CHYLMD TRACH DNA AMP PROBE Returned 05/19/2018 12:00 AM DETECT AGENT NOS DNA QUANT Returned Results Summary Date and Description Results [...] both lower extremities May 26 2018 5:41PM Payers Insurance Name Company Name Plan Name Plan Number Policy Number Policy Group Number Start Date WPS - VAPCCC - 's Choice WPS VACAA [id number] N/A [facility] For Life [id number] N/A Veterans Administration Veterans Administration [id number] N/A History of Encounters Visit Date Visit Type Provider 05/19/2018 Office visit Claude Rodriguez MD 05/09/[address] Austin Austin MD 04/29/[address] Austin Austin MD 04/25/2018 Office visit Nicholas Duarte MD 03/24/2018 Procedures Nicholas Duarte MD 03/18/[address] Austin Austin MD 03/06/2018 Office visit Nicholas Duarte MD
--- OUTSIDE RECORDS SUMMARY | 2018-11-22 00:03 | XMS REPORT ---
Author Author Claude Rodriguez Organization [facility] Address [address] [place], [place] [phone] Care Team Providers Care Assistant Superintendent Name Role Phone Claude Rodriguez PCP Ausitn Austin PreferredProvider Allergies and Adverse Reactions Name [...] - VAPCCC - 's Choice WPS VACAA [id number] N/A [facility] [id number] N/A Veterans Administration Veterans Administration [id number] N/A History of Encounters Visit Date Visit Type Provider 05/19/2018 Office visit Claude Rodriguez MD 05/09/[address] Austin Austin MD 04/29/[address] Austin Austin MD 04/25/2018 Office visit Nicholsa Duarte MD 03/24/2018 Procedures Nicholas Duarte MD 03/18/[address] Austin Austin MD 03/06/2018 Office visit Nicholas Duarte MD
--- OUTSIDE RECORDS SUMMARY | 2018-11-22 00:03 | XMS REPORT ---
Author Author Claude Rodriguez Organization [facility] Address [address] [place], [place] [phone] Care Team Providers Care 911 Telecommunicator Name Role Phone Claude Rodriguez PCP Austin [...] 5:41PM Vasovagal syncope May 09 2018 2:00PM Payers Insurance Name Company Name Plan Name Plan Number Policy Number Policy Group Number Start Date WPS - VAPCCC - [place]'s Choice WPS VACAA [id number] N/A [place] [facility] For Life [id number] N/A Veterans Administration [facility] Administration [id number] N/A History of Encounters Visit Date Visit Type Provider 05/19/2018 Office visit Claude Rodriguez MD 05/09/[address] Austin Austin MD 04/29/[address] Austin Austin MD 04/25/2018 Office visit Nicholas Duarte MD 03/24/2018 Procedures Nicholas Duarte MD 03/18/[address] Austin Austin MD 03/06/2018 Office visit Nicholas Duarte MD
--- OUTSIDE RECORDS SUMMARY | 2018-11-22 00:04 | XMS REPORT ---
Author Author Claude Rodriguez [facility] Address [address] [place], [place] [phone] Care Team Providers Care Medical Doctor Md/Medical Director Name Role Phone Claude Rodriguez PCP Austin Austin PreferredProvider Allergies and Adverse Reactions Name Reaction Notes PENICILLINS morphine Methotrexate Latex losartan Imitrex Plan of Treatment Planned Activity Comments Planned Date Planned Time Plan/Goal EKG. 05/08/2018 12:00 AM TRICHOMONAS AMPLIFIED 05/19/2018 12:00 AM TRICHOMONAS AMPLIFIED 05/19/2018 12:00 AM Bacterial vaginosis panel (Gardnerella vaginalis, Atopobium vaginae, BV associated Bacteria 2 05/19/2018 12:00 AM MRI LUMBAR W/CONTRAST 05/26/2018 12:00 AM Medications Active Name Start [...] AM CHYLMD TRACH DNA AMP PROBE Returned Results Summary Date and Description Results [...] Number Start Date WPS - VAPCCC - [place]'s Choice WPS VACAA [id number] N/A [facility] For Life [id number] N/A Veterans Administration Veterans Administration [id number] N/A History of Encounters Visit Date Visit Type Provider 05/19/2018 Office visit Claude Rodriguez MD 05/09/[address] Austin Austin MD 04/29/[address] Austin Austin MD 04/25/2018 Office visit Nicholas Duarte MD 03/24/2018 Procedures Nicholas Duarte MD 03/18/[address] Austin Austin MD 03/06/2018 Office visit Nicholas Duarte MD
--- OUTSIDE RECORDS SUMMARY | 2018-11-22 00:04 | XMS REPORT ---
Author Author Claude Rodriguez [facility] Address [address] [place], [place] [phone] Care Team Providers Care Rn Telephonic Name Role Phone Claude Rodriguez PCP Austin Austin PreferredProvider Allergies and Adverse Reactions Name Reaction Notes PENICILLINS morphine Methotrexate Latex losartan Imitrex Plan of Treatment Planned Activity Comments Planned Date Planned Time Plan/Goal EKG. 05/08/2018 12:00 AM TRICHOMONAS AMPLIFIED 05/19/2018 12:00 AM TRICHOMONAS AMPLIFIED 05/19/2018 12:00 AM Bacterial vaginosis panel (Gardnerella vaginalis, Atopobium vaginae, BV associated Bacteria 2 05/19/2018 12:00 AM Medications Active Name Start Date [...] crush, chew and/or divide. for 30 days ferrous sulfate 325 mg (65 mg iron) oral tablet 05/09/2018 08/07/2018 take 1 tablet (325 mg) by oral route once daily for 30 days Problem List Not available. [...] 2:52PM Vaginal bleeding May 19 2018 2:52PM Payers Insurance Name Company Name Plan Name Plan Number Policy Number Policy Group Number Start Date WPS - VAPCCC - [place]'s Choice WPS VACAA [id number] N/A [facility] For Life [id number] N/A Veterans Administration Veterans Administration [id number] N/A History of Encounters Visit Date Visit Type Provider 05/19/2018 Office visit Claude Rodriguez MD 05/09/[address] Austin Austin MD 04/29/[address] Austin Austin MD 04/25/2018 Office visit Nicholas Duarte MD 03/24/2018 Procedures Nicholas Duarte MD 03/18/[address] Austin Austin MD 03/06/2018 Office visit Nicholas Duarte MD
--- OUTSIDE RECORDS SUMMARY | 2018-11-22 00:04 | XMS REPORT ---
Author Author Claude Rodriguez [facility] Address [address] [place], [place] [phone] Care Team Providers Care Woven Paper Hat Mender Name Role Phone Claude Rodriguez PCP Austin [...] Number Start Date WPS - VAPCCC - [place]'s Choice WPS VACAA [id number] N/A [place] [facility] For Life [id number] N/A Veterans Administration Veterans Administration [id number] N/A History of Encounters Visit Date Visit Type Provider 05/19/2018 Office visit Claude Rodriguez MD 05/09/[address] Austin Austin MD 04/29/[address] Austin Austin MD 04/25/2018 Office visit Nicholas Duarte MD 03/24/2018 Procedures Nicholas Duarte MD 03/18/[address] Austin Austin MD 03/06/2018 Office visit Nicholas Duarte MD
--- OUTSIDE RECORDS SUMMARY | 2018-11-22 00:05 | XMS REPORT ---
Author Austin Bagley [facility] Address [address] [place], [place] [phone] Care Team Providers Care Clinical Pharmacist Name Role Phone Austin Austin PCP Austin Austin PreferredProvider Allergies and Adverse Reactions Name Reaction Notes PENICILLINS morphine Methotrexate Latex losartan Plan of Treatment Planned Activity Comments Planned [...] HC BMI BSA BMI Percentile O2 Sat(%) 05/09/2018 1:55:00 PM 128 mmHg 78 mmHg [...] 04/25/2018 12:00 AM URINALYSIS AUTO W/SCOPE Reviewed Results Summary Date and Description Results [...] extremity Rheumatiod Arthritis sleep apnea Urge Incontinence Nov 15 2018 3:31PM Interstitial cystitis Mar 06 2018 [...] 2:00PM Chronic constipation Apr 25 2018 11:33AM Payers Insurance Name Company Name Plan Name Plan Number Policy Number Policy Group Number Start Date [facility] [id number] N/A [facility] Administration [id number] N/A History of Encounters Visit Date Visit Type Provider 05/09/[address] Austin Austin MD 04/29/[address] Austin Austin MD 04/25/2018 Office visit Nicholas Duarte MD 03/24/2018 Procedures Nicholas Duarte MD 03/18/[address] Austin Austin MD 03/06/2018 Office visit Nicholas Duarte MD
--- OUTSIDE RECORDS SUMMARY | 2018-11-22 00:05 | XMS REPORT ---
Author Author Austin Austin [facility] Address [address] [place], [place] [phone] Care Team Providers Care Convention Services Manager Name Role Phone Austin Austin PCP Austin Austin PreferredProvider Allergies and Adverse Reactions Name Reaction Notes PENICILLINS morphine Methotrexate Latex losartan Plan of Treatment Not available. Medications Active Name Start Date Estimated Completion [...] HC BMI BSA BMI Percentile O2 Sat(%) 04/29/2018 1:27:00 PM 132 mmHg 76 mmHg [...] 12:00 AM MYOCARDIAL SPECT MULTIPLE STUDIES Returned 04/25/2018 12:00 AM URINALYSIS AUTO W/SCOPE Reviewed 04/29/2018 12:00 AM SMEAR WET MOUNT SALINE/INK Returned Results Summary Date and Description Results [...] 11:33AM Vaginal discharge Apr 29 2018 1:32PM Payers Insurance Name Company Name Plan Name Plan Number Policy Number Policy Group Number Start Date [facility] For Life [id number] N/A [facility] [id number] N/A History of Encounters Visit Date Visit Type Provider 04/29/[address] Austin Austin MD 04/25/2018 Office visit Nicholas Duarte MD 03/24/2018 Procedures Nicholas Duarte MD 03/18/[address] Austin Austin MD 03/06/2018 Office visit Nicholas Duarte MD
--- OUTSIDE RECORDS SUMMARY | 2018-11-22 00:05 | XMS REPORT ---
Author Austin Bagley [facility] Address [address] [place], [place] [phone] Care Team Providers Care Aerospace Assembler Name Role Phone Austin Austin PCP Austin Austin PreferredProvider Allergies and Adverse Reactions Name Reaction Notes PENICILLINS morphine Methotrexate Latex losartan Plan of Treatment Planned Activity Comments Planned Date Planned Time Plan/Goal CBC W/ AUTO DIFF (RFLX MAN DIFF IF IND). 05/08/2018 12:00 AM CMP 05/08/2018 12:00 AM Chest PA and Lateral - Main 05/08/2018 12:00 AM EKG. 05/08/2018 12:00 AM Medications Active [...] 1:32PM Syncopal episodes May 08 2018 11:21AM Payers Insurance Name Company Name Plan Name Plan Number Policy Number Policy Group Number Start Date [facility] For Life [id number] N/A [facility] Administration [id number] N/A History of Encounters Visit Date Visit Type Provider 04/29/[address] Austin Austin MD 04/25/2018 Office visit Nicholas Duarte MD 03/24/2018 Procedures Nicholas Duarte MD 03/18/[address] Austin Austin MD 03/06/2018 Office visit Nicholas Duarte MD
--- OUTSIDE RECORDS SUMMARY | 2018-11-22 00:06 | XMS REPORT ---
Author Author Austin Austin [facility] Address [address] [place], [place] [phone] Care Team Providers Care Senior Economist Name Role Phone Austin Austin PCP Austin [...] Policy Number Policy Group Number Start Date [facility] [id number] N/A [facility] [id number] N/A History of Encounters Visit Date Visit Type Provider 04/29/[address] Austin Austin MD 04/25/2018 Office visit Nicholas Duarte MD 03/24/2018 Procedures Nicholas Duarte MD 03/18/[address] Austin Austin MD 03/06/2018 Office visit Nicholas Duarte MD
--- OUTSIDE RECORDS SUMMARY | 2018-11-22 00:06 | XMS REPORT ---
Author Austin Bagley [facility] Address [address] [place], [place] [phone] Care Team Providers Care Desktop Specialist Name Role Phone Austin Austin PCP Austin Austin PreferredProvider Allergies and Adverse Reactions Name Reaction Notes PENICILLINS morphine Methotrexate Latex losartan Plan of Treatment Planned Activity Comments Planned Date Planned Time Plan/Goal Limited non-obstetrical ultrasound of pelvis 03/06/2018 12:00 AM JOSELO W/REFLEX 03/18/2018 12:00 AM CORTISOL AM 03/18/2018 12:00 AM PROLACTIN 03/18/2018 12:00 AM Medications Active Name Start Date [...] by oral route 2 times per day Problem List Not available. Vital Signs Date Time BP-Sys(mm[Hg] BP-Fang(mm[Hg]) HR(bpm) RR(rpm) Temp WT HT HC BMI BSA BMI Percentile O2 Sat(%) 03/18/2018 1:19:00 PM 104 mmHg 6 mmHg [...] 03/06/2018 12:00 AM URINALYSIS AUTO W/SCOPE Reviewed 03/17/2018 12:00 AM COMPLETE CBC W/AUTO DIFF WBC Reviewed 03/17/2018 12:00 AM METABOLIC PANEL TOTAL CA Reviewed 03/17/2018 12:[address] ABD & PELV 1/> REGNS Returned 03/17/2018 12:00 AM URINALYSIS AUTO W/SCOPE Reviewed 03/18/2018 12:00 AM ASSAY THYROID STIM HORMONE Returned 03/18/2018 12:00 AM RHEUMATOID FACTOR QUANT Returned 03/18/2018 12:00 AM RBC SED RATE AUTOMATED Returned 03/18/2018 12:00 AM ELECTROCARDIOGRAM TRACING Returned Results Summary Date and Description Results [...] doctor, encounter for Mar 18 2018 1:24PM Payers Insurance Name Company Name Plan Name Plan Number Policy Number Policy Group Number Start Date [facility] [id number] N/A History of Encounters Visit Date Visit Type Provider 03/18/[address] Austin Austin MD 03/06/2018 Office visit Nicholas Duarte MD
--- OUTSIDE RECORDS SUMMARY | 2018-11-22 00:06 | XMS REPORT ---
Author Author Nicholas Duarte [facility] Address [address] [place], [place] [phone] Care Team Providers Care Spotter Driver Name Role Phone Nicholas Duarte PCP Austin Austin PreferredProvider Allergies and Adverse Reactions Name Reaction Notes PENICILLINS morphine Methotrexate Latex losartan Plan of Treatment Planned Activity Comments Planned Date Planned Time Plan/Goal T3 FREE 03/31/2018 12:00 AM Total thyroxine measurement 03/31/2018 12:00 AM Lexiscan Cardiolite 03/31/2018 12:00 AM Medications Active Name Start Date [...] TRACING Returned 03/25/2018 12:00 AM CYSTOSCOPY Reviewed Results Summary Date and Description Results [...] 2:56PM Precordial pain Mar 31 2018 2:56PM Payers Insurance Name Company Name Plan Name Plan Number Policy Number Policy Group Number Start Date [facility] Veterans Administration [id number] N/A [facility] For Life [id number] N/A History of Encounters Visit Date Visit Type Provider 03/24/2018 Procedures Nicholas Duarte MD 03/18/[address] Austin Austin MD 03/06/2018 Office visit Nicholas Duarte MD
--- OUTSIDE RECORDS SUMMARY | 2018-11-22 00:06 | XMS REPORT ---
Author Author Nicholas Duarte [facility] Address [address] [place], [place] [address] Care Team Providers Care Vocational Rehabilitation Counselor Name Role Phone Felicia Nicholas PCP Austin Austin PreferredProvider Allergies and Adverse [...] 03/06/2018 12:00 AM US EXAM PELVIC LIMITED Returned 03/17/2018 12:00 AM COMPLETE CBC W/AUTO DIFF [...] 1:24PM Urge incontinence Mar 25 2018 8:49AM Payers Insurance Name Company Name Plan Name Plan Number Policy Number Policy Group Number Start Date [facility] [id number] N/A History of Encounters Visit Date Visit Type Provider 03/24/2018 Procedures Nicholas Duarte MD 03/18/[address] Austin Austin MD 03/06/2018 Office visit Nicholas Duarte MD
--- OUTSIDE RECORDS SUMMARY | 2018-11-22 00:07 | XMS REPORT ---
Author Author Nicholas Duarte [facility] Address [address] [place], [place] [id number] Care Team Providers Care Sweet Potato Disintegrator Name Role Phone Nicholas Duarte PCP Allergies and Adverse Reactions Name Reaction Notes PENICILLINS morphine Methotrexate Latex losartan Plan of Treatment Planned Activity Comments Planned Date Planned Time Plan/Goal Limited non-obstetrical ultrasound of pelvis 03/06/2018 12:00 AM CBC W/ AUTO DIFF (RFLX MAN DIFF IF IND). 03/17/2018 12:00 AM BMP 03/17/2018 12:[address] Urogram 03/17/2018 12:00 AM Medications Active Name Start Date [...] HC BMI BSA BMI Percentile O2 Sat(%) 03/06/2018 3:27:00 PM 124 mmHg 74 mmHg 80 bpm 14 rpm 98.6 F 234.25 lbs 65 in 38.9808 kg/m 2.2075 m 99 % Social History Name Description Comments Alcohol Light Caffeine Current every day Tobacco Never smoker History of Procedures Date Ordered Description Order Status 03/06/2018 12:00 AM URINALYSIS AUTO W/SCOPE Reviewed Results [...] 2018 3:31PM Pyelonephritis Mar 17 2018 9:43AM Payers Insurance Name Company Name Plan Name Plan Number Policy Number Policy Group Number Start Date [facility] [id number] N/A History of Encounters Visit Date Visit Type Provider 03/06/2018 Office visit Nicholas Duarte MD
--- OUTSIDE RECORDS SUMMARY | 2018-11-22 00:07 | XMS REPORT ---
Author Author Nicholas Duarte [facility] Address [address] [place], [place] [id number] Care Team Providers Care Skiver Uppers Or Linings Name Role Phone Nicholas Duarte PCP Allergies and Adverse Reactions Name Reaction Notes PENICILLINS morphine Methotrexate Latex losartan Plan of Treatment Planned Activity Comments Planned Date Planned Time Plan/Goal Limited non-obstetrical ultrasound of pelvis 03/06/2018 12:00 AM CBC W/ AUTO DIFF (RFLX MAN DIFF IF IND). 03/17/2018 12:00 AM BMP 03/17/2018 12:[address] Urogram 03/17/2018 12:00 AM URINALYSIS W/MICRO C&S IF IND 03/17/2018 12:00 AM Medications Active Name Start [...] Policy Number Policy Group Number Start Date [facility] [place] [id number] N/A History of Encounters Visit Date Visit Type Provider 03/06/2018 Office visit Nicholas Duarte MD
--- OUTSIDE RECORDS SUMMARY | 2018-11-22 00:07 | XMS REPORT ---
Author Author Nicholas Duarte [facility] Address [address] [place], [place] [id number] Care Team Providers Care Camp Advisor Name Role Phone Gennyfrench Nicholas PCP Allergies and Adverse Reactions Name Reaction Notes PENICILLINS morphine Methotrexate Latex losartan Plan of Treatment Planned Activity Comments Planned Date Planned Time Plan/Goal URINALYSIS W/MICRO C&S IF IND 03/06/2018 12:00 AM Limited non-obstetrical ultrasound of pelvis 03/06/2018 12:00 AM Medications Active Name Start Date [...] day Tobacco Never smoker History of Procedures Not available. Results Summary Not available. History Of Immunizations Not available. History of [...] 2018 3:31PM Endometriosis Mar 06 2018 3:31PM Payers Insurance Name Company Name Plan Name Plan Number Policy Number Policy Group Number Start Date [facility] [id number] N/A History of Encounters Visit Date Visit Type Provider 03/06/2018 Office visit Nicholas Duarte MD
--- OUTSIDE RECORDS SUMMARY | 2018-11-22 00:07 | XMS REPORT | Continuity of Care Document ---
Demographics Preferred Language Unknown Marital Status Unknown Jainism Affiliation Unknown Race Unknown Ethnic Group Unknown Author Organization Unknown Address Unknown Phone Unavailable Allergies Active Description Code Type Severity Reaction Onset Reported/Identified Relationship to Patient Clinical Status Yes IMITREX [id number] BRANDNAME N/A N/A Yes LATEX [id number] ENVIRONMENTAL N/A Swelling Yes LISINOPRIL [id number] DRUG N/A Cough Yes LOSARTAN POTASSIUM AVPAK [id number] BRANDNAME N/A N/A Yes METHOTREXATE [id number] DRUG N/A N/A Yes MORPHINE [id number] DRUG N/A Itching Yes No Known Drug Allergies [id number] N/A N/A Yes No Known Food Allergies 91274576 N/A N/A Yes PCN (penicillin) [id number] CLASS N/A Rash Yes SUMATRIPTAN [id number] DRUG N/A Anaphylaxis Yes Penicillins Drug Allergy Eczema (rash) 08/04/2009 Yes Morphine Drug Allergy NAUSEA/ITCHING 08/05/2009 Yes No Known Food Allergies Food Allergy 04/12/2010 Medications There is no data. Problems Date Dx Coded Attending Type Code Diagnosis Diagnosed By 12/18/2011 Luis Carlos Boland MD Final 553.1 UMBILICAL HERNIA 12/18/2011 Luis Carlos Boland MD Final 785.6 ENLARGEMENT LYMPH NODES 12/18/2011 Luis Carlos Boland MD Final 789.03 RLQ ABDOMINAL PAIN 12/18/2011 Luis Carlos Boland MD Final V81.5 NEPHROPATHY SCREENING 02/21/2012 Admitting 785.1 PALPITATIONS 02/21/2012 Admitting 786.50 CHEST PAIN NOS 04/01/2012 Luis Carlos Boland MD Final 787.02 NAUSEA ALONE 06/02/2012 Starla Romeo MD Final 250.00 DM2/NOS UNCOMP NSU 06/02/2012 Starla Romeo MD Final 402.90 HTN HRT DIS NOS W/O HF 06/02/2012 Starla Romeo MD Final 427.69 PREMATURE BEATS NEC 06/02/2012 Starla Romeo MD Final 786.50 CHEST PAIN NOS 06/02/2012 Starla Romeo MD Final 794.31 NONSPECIFIC ABN EKG/ECG 06/02/2012 Starla Romeo MD Admitting 785.1 PALPITATIONS 06/02/2012 Starla Romeo MD Admitting 786.50 CHEST PAIN NOS 03/17/2018 P N12 Tubulo-interstitial nephritis, not specified as acute or chronic 03/18/2018 P N12 Tubulo-interstitial nephritis, not specified as acute or chronic 03/19/2018 P E039 Hypothyroidism, unspecified 03/19/2018 S M069 Rheumatoid arthritis, unspecified 03/19/2018 S N643 Galactorrhea not associated with childbirth 03/19/2018 S R072 Precordial pain 03/19/2018 S R5382 Chronic fatigue, unspecified 03/24/2018 P N3941 Urge incontinence 04/02/2018 S R072 Precordial pain 04/02/2018 P R7989 Other specified abnormal findings of blood chemistry 04/08/2018 P [id number] Encounter for preprocedural cardiovascular examination 04/08/2018 S T56379 Encounter for preprocedural laboratory examination 04/08/2018 S Z0183 Encounter for blood typing 07/29/2018 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 Results Test Result Range Factor X Activity - 07/29/18 13:00 Factor X Activity 167 % 76-183 Factor XI Activity - 07/29/18 13:00 Factor XI Activity 144 % 60-150 Factor VII Activity - 07/29/18 13:00 Factor VII Activity 128 % 51-186 Factor V Activity - 07/29/18 13:08 Factor V Activity 172 % 70-150 aPTT Mixing Studies - 07/29/18 13:33 aPTT 26.2 sec 22.9-30.2 aPTT 1:1 Normal Plasma TNP aPTT 1:1 Mix Saline TNP aPTT 1:1 PSYCHOLOGIST [employer] Mix, 60 Min,Incub. TNP aPTT Mixing Studies - 09/02/18 08:15 aPTT 24.5 sec 22.9-30.2 aPTT 1:1 Normal Plasma TNP aPTT 1:1 Mix Saline TNP aPTT 1:1 PSYCHOLOGIST [employer] Mix, 60 Min,Incub. TNP Radiology Report from [id number] on 12/19/2011 08:27:00 Final ReportADMITTING DIAGNOSIS: rlq pain RLQ PAINCT ABD W W/O,PELVIS W - 12/18/2011 [facility]: INDICATION: Patient is with palpable knots on the abdomen. Rightlower quadrant pain. Symptoms x2 weeks.CT imaging of the abdomen before as well as abdomen and pelvisfollowing the administration of intravenous contrast.No comparison studies.FINDINGS: Lung bases are clear. The liver, spleen, pancreas, andadrenal glands are unremarkable. Gallbladder is present andunremarkable. No suggestion for bile duct dilatation. Kidneys arewith relatively normal enhancement. No hydronephros is or evidencefor obstruction. Abdominal aorta is normal in contour. There isno pathologically enlarged central or retroperitoneallymphadenopathy. No abdominal ascites. Small uncomplicatedumbilical hernia. Gastrointestinal tract demonstrates noobstruction or inflammation with a normal appendix demonstrated.Urinary bladder is decompressed. Uterus is absent.Markers are placed in the right inguinal region. Below this areais abnormal haziness and apparent inflammatory changes of thesubcutaneous fat of the right inguinal region. There areadditional somewhat enlarged lymph nodes present. Largest lymphnode measures 17 x 11 mm. Smaller subcentimeter lymph nodes inthe left inguinal region.IMPRESSION: 1. There are apparent nonspecific inflammatory-type changes withprominent lymph nodes of the right inguinal region. This is inthe area of described abnormality. This finding could beinflammatory or infectious in nature. Lymph nodes would not beconsidered pathologically enlarged at this time. Continuedfollowup evaluation is recommended. No suggestion forpathologically enlarged abdominal and/or pelvic lymphadenopathyotherwise present.2. Small uncomplicated umbilical hernia.Dictated on work station # [id number] BY: BENITEZ ESPINOZA D.O., RADIOLOGISTELECTRONICALLY SIGNED BY: BENITEZ ESPINOZA D.O., RADIOLOGISTD Dec 18 2011 3:25PT AIG: Dec 19 2011 8:25AS Dec 19 2011 8:25A Radiology Report from [id number] on 04/01/2012 15:02:00 Final ReportADMITTING DIAGNOSIS: nausea nauseaHIDA W/EJECTION FRACTION (EF) - 04/01/2012 [facility]: INDICATION: Right upper quadrant pain and nausea6.1 mCi of tech 99 Choletec were given. There is visualizationof the gallbladder with activity seen within the small bowel.2.1 mcg of the Kinevac were given. The patient had some nauseawith the administration of the Kinevac. The ejection fraction is74%.IMPRESSION: Normal hepatobiliary scan. The ejection fraction iswithin normal limits at 74%.Dictated on workstation # [id number] BY: JOSSY ROGERS M.D., RADIOLOGISTELECTRONICALLY SIGNED BY: JOSSY ROGERS M.D., RADIOLOGISTD Apr 01 2012 10:43AT MAXWELL: Apr 01 2012 3:00PS Apr 01 2012 3:00P Encounters ACCT No. Visit Date/Time Discharge Status Pt. Type Provider Facility Loc./Unit Complaint [id number] 11/19/2018 15:47:35 Document Registration [id number] 11/13/2018 01:35:08 Document Registration [id number] 10/08/2018 08:09:33 Document Registration [id number] 10/01/2018 16:06:42 Document Registration [id number] 09/02/2018 08:04:52 Document Registration [id number] 09/01/2018 10:22:34 Document Registration [id number] 09/01/2018 10:18:05 Document Registration [id number] 08/27/2018 16:39:39 Document Registration [id number] 08/27/2018 15:25:52 Document Registration [id number] 08/25/2018 10:54:10 Document Registration [id number] 08/20/2018 08:18:23 Document Registration [id number] 08/14/2018 10:13:27 Document Registration [id number] 07/29/2018 12:42:44 Document Registration [id number] 07/25/2018 16:19:32 Document Registration [id number] 07/23/2018 11:50:34 Document Registration [id number] 07/23/2018 11:43:13 Document Registration [id number] 07/23/2018 10:04:49 Document Registration [id number] 07/22/2018 09:34:33 Document Registration [id number] 07/16/2018 09:27:52 Document Registration [id number] 07/16/2018 08:50:16 Document Registration [id number] 07/16/2018 08:29:38 Document Registration [id number] 07/15/2018 11:09:51 Document Registration [id number] 07/13/2018 14:58:47 Document Registration [id number] 07/13/2018 14:37:51 Document Registration [id number] 07/03/2018 15:11:44 Document Registration [id number] 06/29/2018 09:48:01 Document Registration [id number] 06/29/2018 09:33:54 Document Registration [id number] 06/18/2018 09:01:38 Document Registration [id number] 06/13/2018 14:25:16 Document Registration [id number] 06/13/2018 11:11:01 Document Registration [id number] 06/09/2018 01:31:28 Document Registration [id number] 05/27/2018 08:24:23 Document Registration [id number] 05/14/2018 14:18:58 Document Registration [id number] 05/08/2018 11:48:06 Document Registration [id number] 04/29/2018 14:34:41 Document Registration [id number] 04/25/2018 12:38:31 Document Registration [id number] 04/09/2018 15:28:51 Document Registration [id number] 04/09/2018 15:28:29 Document Registration [id number] 04/09/2018 15:28:00 Document Registration [id number] 04/08/2018 09:18:00 Document Registration [id number] 04/02/2018 11:42:00 Document Registration [id number] 03/24/2018 11:23:00 Document Registration [id number] 03/19/2018 08:24:00 Document Registration [id number] 03/18/2018 08:57:00 Document Registration [id number] 03/17/2018 12:27:00 Document Registration [id number] 08/01/2018 09:06:00 Document Registration [id number] 08/01/2018 10:07:00 Document Registration [id number] 08/01/2018 15:05:00 Document Registration [id number] 08/01/2018 10:07:00 Document Registration [id number] 09/04/2018 09:09:00 Document Registration [id number] 08/01/2018 10:07:00 Document Registration [id number] 11/10/2018 16:29:21 11/10/2018 23:59:59 CLS Outpatient aWng Nava [id number] 11/04/2018 09:24:16 11/04/2018 23:59:59 CLS Outpatient Austin Huitron [id number] 10/07/2018 17:11:46 10/07/2018 23:59:59 CLS Outpatient Wang Nava [id number] 10/01/2018 14:58:29 10/01/2018 23:59:59 CLS Outpatient Austin Austin [id number] 09/08/2018 14:36:18 09/08/2018 23:59:59 CLS Outpatient MattiMagdalena Marianela [id number] 09/02/2018 11:05:16 09/02/2018 23:59:59 CLS Outpatient Matti, Magdalena Marianela [id number] 08/29/2018 10:01:42 08/29/2018 23:59:59 CLS Outpatient Matti, Magdalena Marianela [id number] 08/19/2018 10:07:48 08/19/2018 23:59:59 CLS Outpatient Austin Austin [id number] 08/14/2018 09:54:25 08/14/2018 23:59:59 CLS Outpatient Matti, Magdalena Marianela [id number] 08/08/2018 11:30:34 08/08/2018 23:59:59 CLS Outpatient Matti, Magdalena Marianela [id number] 07/23/2018 10:55:33 07/23/2018 23:59:59 CLS Outpatient Matti, Magdalena Bear [id number] 07/15/2018 09:28:36 07/15/2018 23:59:59 CLS Outpatient Austin Austin [id number] 07/03/2018 17:30:28 07/03/2018 23:59:59 CLS Outpatient Wang Nava Jean-Paul [id number] 05/19/2018 15:17:54 05/19/2018 23:59:59 CLS Outpatient LuisDillon lionmichelle LarsonSon [id number] 05/09/2018 14:32:17 05/09/2018 23:59:59 CLS Outpatient Austin Austin [id number] 04/29/2018 14:19:55 04/29/2018 23:59:59 CLS Outpatient Austin Austin [id number] 04/25/2018 12:08:26 04/25/2018 23:59:59 CLS Outpatient Nicholas Duarte [id number] 03/24/2018 14:20:01 03/24/2018 23:59:59 CLS Outpatient GennyNicholas braswell [id number] 03/18/2018 14:11:00 03/18/2018 23:59:59 CLS Outpatient Austin Austin [id number] 03/06/2018 16:07:24 03/06/2018 23:59:59 CLS Outpatient Nicholas Duarte [id number] 11/20/2018 16:12:38 ACT Outpatient Elijah, W Jean-Paul [id number] 06/02/2012 07:30:00 06/02/2012 23:59:59 CLS Outpatient Ousmane DE LA CRUZ, Starla De Jesus [facility] [id number] 04/01/2012 08:14:00 04/01/2012 23:59:59 CLS Outpatient Luis Carlos Boland MD [facility] [id number] 02/21/2012 09:00:00 02/21/2012 23:59:59 CLS Outpatient [id number] 12/18/2011 13:54:00 12/18/2011 23:59:59 CLS Outpatient Luis Carlos Boland MD [facility]
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
[2018-11-22 00:26] LABS: BUN/CREATININE RATIO 14; CALCIUM 9.9 MG/DL (8.5-10.1); CARBON DIOXIDE 22 MMOL/L (21-32); CHLORIDE 106 MMOL/L (98-107); CREATININE SERUM 0.83 MG/DL (0.60-1.30); GFR ESTIMATED > 60; GLUCOSE 100 MG/DL (70-105); HEMOGLOBIN 11.9 G/DL (11.5-16.0); MEAN PLATELET VOLUME 10.4 FL (7.4-10.4); POTASSIUM 3.5 MMOL/L (3.6-5.0); RED CELL DISTRIBUTION WIDTH 14.4 % (10.0-14.5); SODIUM 140 MMOL/L (135-145); WHITE BLOOD COUNT 6.5 10^3/uL (4.3-11.0)
[2018-11-22] MEDS ORDERED: KETOROLAC 30 MG/ML VIAL IVP ONE (01:15)
[2018-11-22 01:54] LABS: BILIRUBIN,URINE NEGATIVE (NEGATIVE); CLARITY,URINE CLEAR; COLOR,URINE YELLOW; GLUCOSE, URINE (UA) NEGATIVE (NEGATIVE); KETONES,URINE NEGATIVE (NEGATIVE); LEUKOCYTE ESTERASE ,URINE NEGATIVE (NEGATIVE); NITRITE,URINE NEGATIVE (NEGATIVE); PH,URINE 6.5 (5-9); PROTEIN,URINE NEGATIVE (NEGATIVE); UROBILINOGEN,URINE NORMAL (NORMAL)
[2018-11-22 02:09] LABS: AMPHETAMINE SCREEN, URINE NEGATIVE (NEGATIVE); BARBITURATE SCREEN URINE NEGATIVE (NEGATIVE); BENZODIAZEPINES SCREEN URINE POSITIVE (NEGATIVE); CANNABINOID SCREEN, URINE NEGATIVE (NEGATIVE); COCAINE SCREEN URINE NEGATIVE (NEGATIVE); METHADONE STAT NEGATIVE (NEGATIVE); METHAMPHETAMINE SCREEN URINE S NEGATIVE (NEGATIVE); OPIATE SCREEN URINE POSITIVE (NEGATIVE); OXYCODONE STAT NEGATIVE (NEGATIVE); PROPOXYPHENE STAT NEGATIVE (NEGATIVE); TRICYCLIC ANTIDEPRESSANTS SCRE NEGATIVE (NEGATIVE)
[2018-11-22 02:13] LABS: BACTERIA,URINE TRACE /HPF
[2018-11-22] MEDS ORDERED: CYCL10TA9 PO (02:16)
[2018-11-22 02:24] VITALS: BP 128/83
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
== END 2018-11-22 02:30 | disposition home or self-care (01) ==
LOC: ER 23:47
DX: S13.4XXA Sprain of ligaments of cervical spine, initial encounter (principal); M54.5 Low back pain; R40.2142 Coma scale, eyes open, spontaneous, at arrival to emergency department; R40.2252 Coma scale, best verbal response, oriented, at arrival to emergency department; R40.2362 Coma scale, best motor response, obeys commands, at arrival to emergency department; Z88.0 Allergy status to penicillin; Z91.040 Latex allergy status; Z88.5 Allergy status to narcotic agent; Z88.8 Allergy status to other drugs, medicaments and biological substances; V49.50XA Passenger injured in collision with unspecified motor vehicles in traffic accident, initial encounter; Y92.411 Interstate highway as the place of occurrence of the external cause
CPT/HCPCS: 36415; 70450; 71045; 72125; 72131; 80048; 80306; 80320; 81000; 84703; 85027; 96374; 96375